=== PATIENT | female | born 1955 | race Caucasian/White ===

== ENCOUNTER 2018-09-02 09:55 | Emergency (ER) | payer OTHER ==
[~2018-09-02] VITALS: Ht 167.6 cm; Wt 70.0 kg
[~2018-09-02 09:55] MED LIST: ASPI-817; GLIP5TAB13; LEVO150T64; LISI10TA2; METF-849; PIOG15TA12; SIMV10TA
[2018-09-02 09:57] VITALS: BP 156/74; PULSE 106; RESP 18; Ht 167.6 cm; Wt 70.0 kg
[2018-09-02] MEDS ORDERED: KETOROLAC 30 MG INJ IM STA (10:19)
--- NOTE | 2018-09-02 10:29 | ERD ---
ER Documentation Chief Complaint Chief Complaint BIB CODE GREEN LEFT LEG PAIN S/P GROUND LEVEL FALL HPI 63-year-old female past medical history of diabetes who presented to the emergency room status post fall earlier this morning. Patient states he was in her daughter's room and slipped and "did a split" on wet floor. Has had persistent pain to the left knee as well as swelling. She denies any other injuries. No prefall dizziness or headache, no LOC or head trauma, no back pain. Has had difficulty placing weight on left knee. No past history of injuries to lower extremity. ROS All systems reviewed and are negative except as per history of present illness. Medications Home Meds Active Scripts Hydrocodone/Acetaminophen ([place] 5-325 Tablet) 1 Each Tablet, 1 TAB PO Q6H PRN for PAIN, #7 TAB Prov:EDWARDO DOMINGO PA-C 09/02/18 Naproxen* (Naprosyn*) 500 Mg Tablet, 500 MG PO BID PRN for PAIN AND/OR INFLAMMATION, #30 TAB Prov:EDWARDO DOMINGO PA-C 09/02/18 Reported Medications Aspirin* (Aspirin* EC) 81 Mg Tablet. 10/15/10 Lisinopril* (Lisinopril*) 10 Mg Tablet 10/15/10 Simvastatin* (Zocor*) 10 Mg Tablet 10/15/10 Glipizide* (Glipizide*) 5 Mg Tablet 10/15/10 Levothyroxine Sodium* (Levoxyl*) 150 Mcg Tablet 10/15/10 Pioglitazone Hcl* (Actos*) 15 Mg Tablet 10/15/10 Metformin* (Glucophage*) 500 Mg Tab 10/15/10 Allergies Allergies: Coded Allergies: No Known Drug Allergies (Verified Allergy, Mild, 09/02/18) PMhx/Soc History of Surgery: Yes (CHOLECYSTECTOMY) Anesthesia Reaction: No Hx Neurological Disorder: No Hx Respiratory Disorders: No Hx Cardiac Disorders: No Hx Psychiatric Problems: No Hx Miscellaneous Medical Probl: No Hx Alcohol Use: No Hx Substance Use: No Hx Tobacco Use: No FmHx Family History: No diabetes, No coronary disease, No other Physical Exam Vitals Vital Signs Date Temp Pulse Resp B/P (MAP) Pulse Ox O2 O2 Flow FiO2 Time Delivery Rate 09/02/18 97.9 106 18 156/74 99 09:57 (101) Physical Exam I have reviewed the triage vital signs. Const: Well nourished, well developed, appears stated age Eyes: PERRL, no conjunctival injection HENT: NCAT, Neck supple without meningismus CV: RRR, Warm, well-perfused extremities RESP: CTAB, Unlabored respiratory effort GI: soft, non-tender, non-distended, no masses MSK: No gross deformities appreciated L knee limited exam secondary to pain, painful ROM, prominent swelling to knee > lateral aspect, no gross deformity, SILT throughout, good distal pulses Skin: Warm, dry. No rashes Neuro: Alert,grossly intact Psych: Appropriate mood and affect. Results 24 hrs Current Medications Medications Dose Sig/Mandy Start Time Status Last (Trade) Ordered Route PRN Stop Time Admin Dose Reason Admin Ketorolac 30 mg ONCE STAT 09/02/18 DC 09/02/18 Tromethamine IM 10: 10:29 (Toradol) 09/02/18 10:21 Procedures/MDM 63-year-old female presents status post fall with injury to L knee. Will obtain imaging of left knee given. X-ray with acute tibial plateau fracture. Patient is neurovascular intact. Instructed patient in detail that she will need PMD follow-up just in case she needs MRI for additional evaluation as well as orthopedic surgery evaluation. She otherwise is stable and has good PMD follow- up. ED course: Toradol X-ray of left knee with acute tibial plateau fracture splint applied: Neurovascularly intact post splint Patient's symptoms have stabilized while in the department and are appropriate for outpatient care and work up. Fall Risk Assessment: No evidence of cardiac, neurologic, or metabolic cause of fall. Fall risk and home safety assessed and appropriate for outpatient care and work up. Departure Condition: Stable Patient Instructions: Knee Pain, Meniscus Injury (Possible) Referrals: [facility] EDWARDO DOMINGO PA-C Sep 02, 2018 10:29
[2018-09-02] MEDS ORDERED: NAPR-985 PO (10:31)
[2018-09-02] MEDS ORDERED: HYDR-4011 PO (10:31)
== END 2018-09-02 13:01 | disposition left against medical advice (07) ==
LOC: FTE 09:55 → EEVIPCON 09:55 → FTE 13:01
DX: S82.122A Displaced fracture of lateral condyle of left tibia, initial encounter for closed fracture (principal); E11.9 Type 2 diabetes mellitus without complications; W01.0XXA Fall on same level from slipping, tripping and stumbling without subsequent striking against object, initial encounter; Y92.89 Other specified places as the place of occurrence of the external cause; Z79.82 Long term (current) use of aspirin; Z79.84 Long term (current) use of oral hypoglycemic drugs
CPT/HCPCS: 29515; 73562; J1885; 96372

== ENCOUNTER 2018-10-04 17:03 | Inpatient (IN) | payer OTHER ==
[~2018-10-04] VITALS: Ht 157.5 cm; Wt 101.5 kg
[~2018-10-04 17:03] MED LIST changes: +HYDR-4011 PO; +NAPR-985 PO
[2018-10-04] MEDS ORDERED: SOD CHLORIDE 0.9% 250 ML IV STA (19:27)
--- NOTE | 2018-10-04 20:01 | ERD ---
ER Documentation Chief Complaint Chief Complaint HERE FOR ADMISSION, SEND BY DR GIRARD DX LEFT [place] LATERAL TIBIAL PLATEAU FX HPI 63-year-old woman presents with left knee pain status post depressed lateral left tibial plateau fracture that occurred 1 month ago. She was referred here by her orthopedic surgeon for preop workup and admission pending ORIF tomorrow morning. She denies any recent redness or swelling to the knee, no fevers or chills, no calf swelling, no complaints of chest pain or shortness of breath ROS All systems reviewed and are negative except as per history of present illness. Medications Home Meds Active Scripts Hydrocodone/Acetaminophen ([place] 5-325 Tablet) 1 Each Tablet, 1 TAB PO Q6H PRN for PAIN, #7 TAB Prov:EDWARDO DOMINGO PA-C 09/02/18 Naproxen* (Naprosyn*) 500 Mg Tablet, 500 MG PO BID PRN for PAIN AND/OR INFLAMMATION, #30 TAB Prov:EDWARDO DOMINGO PA-C 09/02/18 Reported Medications Aspirin* (Aspirin* EC) 81 Mg Tablet. 10/15/10 Lisinopril* (Lisinopril*) 10 Mg Tablet 10/15/10 Simvastatin* (Zocor*) 10 Mg Tablet 10/15/10 Glipizide* (Glipizide*) 5 Mg Tablet 10/15/10 Levothyroxine Sodium* (Levoxyl*) 150 Mcg Tablet 10/15/10 Pioglitazone Hcl* (Actos*) 15 Mg Tablet 10/15/10 Metformin* (Glucophage*) 500 Mg Tab 10/15/10 Allergies Allergies: Coded Allergies: No Known Drug Allergies (Verified Allergy, Mild, 09/02/18) PMhx/Soc Obesity, hypothyroidism, diabetes mellitus, history of cholecystectomy, hypertension, hearing impaired History of Surgery: Yes (CHOLECYSTECTOMY, hernia repair, cataract sx.) Anesthesia Reaction: No Hx Neurological Disorder: No Hx Respiratory Disorders: No Hx Cardiac Disorders: No Hx Psychiatric Problems: No Hx Miscellaneous Medical Probl: Yes (DM) Hx Alcohol Use: No Hx Substance Use: No Hx Tobacco Use: No FmHx Family History: diabetes Physical Exam Vitals Vital Signs Date Temp Pulse Resp B/P (MAP) Pulse Ox O2 O2 Flow FiO2 Time Delivery Rate 10/04/18 98.5 90 18 136/68 99 17:06 (90) Physical Exam Const: Mild discomfort, afebrile Resp: Clear to auscultation bilaterally Cardio: Regular rate and rhythm, no murmurs Abd: Soft, non tender, non distended. Skin: No petechiae or rashes Back: No midline or flank tenderness Ext: Mild soft tissue tenderness over the left lateral knee, patient is able to flex and extend the knee, distal pulses equal bilateral Neur: Awake and alert x3, no focal deficits or facial asymmetry Psych: Normal Mood and Affect Result Diagram: 10/04/18194310/04/181943 Results 24 hrs Laboratory Tests Test 10/04/18 19:44 White Blood Count 16.6 10^3/ul Red Blood Count 4.98 10^6/ul Hemoglobin 12.4 g/dl Hematocrit 39.7 % Mean Corpuscular Volume 79.7 fl Mean Corpuscular Hemoglobin 24.9 pg Mean Corpuscular Hemoglobin Concent 31.2 g/dl Red Cell Distribution Width 15.0 % Platelet Count 458 10^3/UL Mean Platelet Volume 10.0 fl Immature Granulocytes % 0.500 % Neutrophils % 61.0 % Lymphocytes % 30.2 % Monocytes % 5.5 % Eosinophils % 2.1 % Basophils % 0.7 % Nucleated Red Blood Cells % 0.0 /100WBC Immature Granulocytes # 0.090 10^3/ul Neutrophils # 10.1 10^3/ul Lymphocytes # 5.0 10^3/ul Monocytes # 0.9 10^3/ul Eosinophils # 0.4 10^3/ul Basophils # 0.1 10^3/ul Nucleated Red Blood Cells # 0.0 10^3/ul Prothrombin Time 12.4 Sec Prothrombin Time Ratio 1.0 INR International Normalized Ratio 0.91 Activated Partial Thromboplast Time 27.5 Sec Sodium Level 141 mmol/L Potassium Level 3.7 mmol/L Chloride Level 105 mmol/L Carbon Dioxide Level 25 mmol/L Anion Gap 11 Blood Urea Nitrogen 11 mg/dl Creatinine 0.54 mg/dl Est Glomerular Filtrat Rate mL/min > 60 mL/min Glucose Level 117 mg/dl Hemoglobin A1c 12.5 % Calcium Level 10.0 mg/dl Total Bilirubin 0.2 mg/dl Direct Bilirubin 0.00 mg/dl Indirect Bilirubin 0.2 mg/dl Aspartate Amino Transf (AST/SGOT) 13 IU/L Alanine Aminotransferase (ALT/SGPT) 13 IU/L Alkaline Phosphatase 154 IU/L Total Protein 7.9 g/dl Albumin 4.1 g/dl Globulin 3.80 g/dl Albumin/Globulin Ratio 1.07 Lipase 201 U/L Current Medications Medications Dose Sig/Mandy Start Time Status Last (Trade) Ordered Route PRN Stop Time Admin Dose Reason Admin Sodium 250 ml @ Q1H STAT 10/04/18 DC 10/04/18 Chloride 250 mls/hr IV 19:27 20:15 10/04/18 20:26 Procedures/MDM IV line was established patient was placed on cardiac exercise physiologist rhythm strip revealed a sinus rhythm at about 80 bpm with upright P and T waves. Patient was afebrile 1 view chest x-ray performed, read by me revealed mild atelectatic changes, no acute infiltrates, no pneumothorax. EKG performed, read by me: 82 bpm, normal sinus rhythm, normal axis, no acute ST segment changes, narrow QRS complex, with good R-wave progression in precordial leads. I administered normal saline drip CBC revealed a leukocytosis of 17, electrolytes normal, coagulation profile normal Patient is admitted to [facility] and is kept n.p.o. after midnight. Departure Diagnosis: Primary Impression: Tibial plateau fracture, left Encounter type: initial encounter Fracture type: closed Qualified Codes: S82.142A - Displaced bicondylar fracture of left tibia, initial encounter for closed fracture Condition: JACQUIE Zambrano MD Oct 04, 2018 20:01
[2018-10-04] MEDS ORDERED: DOCUSATE SODIUM 100 MG CAP PO PRN (20:30)
[2018-10-04] MEDS ORDERED: ACETAMINOPHEN 325 MG TAB PO PRN (20:30)
[2018-10-04] MEDS ORDERED: NACL 0.9% 3 ML SYG IV SCH (20:30)
[2018-10-04] MEDS ORDERED: morphine 2 MG INJ IV PRN (20:30)
[2018-10-04] MEDS ORDERED: ONDANSETRON 4 MG INJ IV PRN ×2 (20:30→21:30)
[2018-10-04] MEDS ORDERED: BISACODYL (EC) 5 MG TAB PO PRN (20:30)
--- NOTE | 2018-10-04 21:07 | CONS ---
Assessment/Plan Assessment/Plan Assessment/Plan (Daily) Preop For Left tibial plateau fracture and depression - Pt admitted from ER for planned for ORIF urgently given 3 week delay in surgery - NWB to the LLE - DM2 mgmt per Primary - Case mgmt - NPO after MN if cleared for surgery tomorrow - SCDS, williams for DVT prophx - CT of the left knee ---- Adrián Girard MD Consultation Date/Type/Reason Admit Date/Time Date of Consultation: Oct 04, 2018 Type of Consult Orthopedic Surgery Date/Time of Note DATE: 10/04/18 TIME: 21:07 Hx of Present Illness 63 yo female with 3 week history of Left knee pain s/p fall. Patient now with worsening pain and concern for future knee problems due to delay in surgery. Past Medical History Medical History: diabetes Home Meds Active Scripts Hydrocodone/Acetaminophen ([place] 5-325 Tablet) 1 Each Tablet, 1 TAB PO Q6H PRN for PAIN, #7 TAB Prov:EDWARDO DOMINGO PA-C 09/02/18 Naproxen* (Naprosyn*) 500 Mg Tablet, 500 MG PO BID PRN for PAIN AND/OR INFLAMMATION, #30 TAB Prov:EDWARDO DOMINGO PA-C 09/02/18 Reported Medications Aspirin* (Aspirin* EC) 81 Mg Tablet. 10/15/10 Lisinopril* (Lisinopril*) 10 Mg Tablet 10/15/10 Simvastatin* (Zocor*) 10 Mg Tablet 10/15/10 Glipizide* (Glipizide*) 5 Mg Tablet 10/15/10 Levothyroxine Sodium* (Levoxyl*) 150 Mcg Tablet 10/15/10 Pioglitazone Hcl* (Actos*) 15 Mg Tablet 10/15/10 Metformin* (Glucophage*) 500 Mg Tab 10/15/10 Allergies: Coded Allergies: No Known Drug Allergies (Verified Allergy, Mild, 09/02/18) Social History Alcohol Use: none Smoking Status: Unknown if ever smoked Exam/Review of Systems Exam Vitals Vital Signs Date Temp Pulse Resp B/P (MAP) Pulse Ox O2 O2 Flow FiO2 Time Delivery Rate 10/04/18 98.5 79 18 130/82 99 Room Air 21:02 (98) Extremities: other (LLE/ TA /GSC/EHL intact, silt to the m/l/d/p/fdws, dp/pt 1+, TTP over the lateral tibial plateau) Results Result Diagram: 10/04/18194310/04/184 Results 24hrs Laboratory Tests Test 10/04/18 19:44 White Blood Count 16.6 H Red Blood Count 4.98 Hemoglobin 12.4 Hematocrit 39.7 Mean Corpuscular Volume 79.7 L Mean Corpuscular Hemoglobin 24.9 L Mean Corpuscular Hemoglobin Concent 31.2 L Red Cell Distribution Width 15.0 H Platelet Count 458 H Mean Platelet Volume 10.0 Immature Granulocytes % 0.500 H Neutrophils % 61.0 Lymphocytes % 30.2 Monocytes % 5.5 Eosinophils % 2.1 Basophils % 0.7 Nucleated Red Blood Cells % 0.0 Immature Granulocytes # 0.090 H Neutrophils # 10.1 H Lymphocytes # 5.0 H Monocytes # 0.9 Eosinophils # 0.4 Basophils # 0.1 Nucleated Red Blood Cells # 0.0 Prothrombin Time 12.4 Prothrombin Time Ratio 1.0 INR International Normalized Ratio 0.91 Activated Partial Thromboplast Time 27.5 Sodium Level 141 Potassium Level 3.7 Chloride Level 105 Carbon Dioxide Level 25 Anion Gap 11 Blood Urea Nitrogen 11 Creatinine 0.54 Est Glomerular Filtrat Rate mL/min > 60 Glucose Level 117 Hemoglobin A1c 12.5 H Calcium Level 10.0 Total Bilirubin 0.2 Direct Bilirubin 0.00 Indirect Bilirubin 0.2 Aspartate Amino Transf (AST/SGOT) 13 L Alanine Aminotransferase (ALT/SGPT) 13 Alkaline Phosphatase 154 H Total Protein 7.9 Albumin 4.1 Globulin 3.80 H Albumin/Globulin Ratio 1.07 Lipase 201 VANESSA GIRARD MD Oct 04, 2018 21:07
--- NOTE | 2018-10-04 21:14 | HP ---
Date/Time of Note Date/Time of Note DATE: 10/04/18 TIME: 21:14 Assessment/Plan VTE Prophylaxis SCD applied (from Nsg): Yes Pharmacological prophylaxis: NA/contraindicated Pharm contraindication: surgical contra Lines/Catheters IV Catheter Type (from Nrsg): Mid Line Assessment/Plan Hospital Course This is a 63-year-old female being [facility] for: #1 Left acute depressed lateral tibial plateau fracture: We will proceed with a CT of the left lower extremity as requested by orthopedic surgery. Her white blood cells though are elevated at 16,000 and her x-ray did show signs of bronchial wall thickening which likely are consistent with her bronchial symptoms. She does not have any Sirs criteria. And she is afebrile. Will check a urinalysis as well for completeness sake. Will treat the bronchitis,, would hold off on surgery for the morning at the minimum until we can further see her progress for sending her in for surgery. I will also put in a pulmonary consult to get their opinion. Her hemoglobin A1c is 12.5 will need to optimize her blood sugars. Prior to her injury, she was a normally active functioning female. She was able to walk up and down stairs without any chest pain or shortness of breath. She has not had any issues with anesthesia in the past. She has METS greater than 4. EKG is nonischemic. Patient would be deemed intermediate risk for surgery, but the benefits would outweigh the risks. We will need to optimize her res piratory status as well as her blood sugars prior to undergoing surgery. #2 bronchitis: Likely viral. Patient did have white blood cell count of 16,000. She is a however is afebrile. We will put her on Atrovent scheduled. Will have pulmonary see the patient in consult as well to assess for surgical clearance. #3 Leukyctosis: possibly viral secondary to #2 afebrile. no sirs. will asses urinalysis. #4 nasal congestion: Flonase 1 spray in each nostril twice daily #5 poorly controlled diabetes mellitus: Patient has hemoglobin A1c of 12.5. Will initiate her weight-based dose of Lantus. Insulin sliding scale. Optimize patient's blood sugars prior to surgery. Will hold home oral medications at the current time #6 hypothyroidism: Check a TSH level, continue levothyroxine #7 hypertension: Resume patient's home medications #8 DVT GI prophylaxis: SCDs right lower extremity, no GI prophylaxis indicated Further treatment strategy will be implemented as per the clinical course Result Diagram: 10/04/18194310/04/181943 Results 24hrs Laboratory Tests Test 10/04/18 19:44 White Blood Count 16.6 H Red Blood Count 4.98 Hemoglobin 12.4 Hematocrit 39.7 Mean Corpuscular Volume 79.7 L Mean Corpuscular Hemoglobin 24.9 L Mean Corpuscular Hemoglobin Concent 31.2 L Red Cell Distribution Width 15.0 H Platelet Count 458 H Mean Platelet Volume 10.0 Immature Granulocytes % 0.500 H Neutrophils % 61.0 Lymphocytes % 30.2 Monocytes % 5.5 Eosinophils % 2.1 Basophils % 0.7 Nucleated Red Blood Cells % 0.0 Immature Granulocytes # 0.090 H Neutrophils # 10.1 H Lymphocytes # 5.0 H Monocytes # 0.9 Eosinophils # 0.4 Basophils # 0.1 Nucleated Red Blood Cells # 0.0 Prothrombin Time 12.4 Prothrombin Time Ratio 1.0 INR International Normalized Ratio 0.91 Activated Partial Thromboplast Time 27.5 Sodium Level 141 Potassium Level 3.7 Chloride Level 105 Carbon Dioxide Level 25 Anion Gap 11 Blood Urea Nitrogen 11 Creatinine 0.54 Est Glomerular Filtrat Rate mL/min > 60 Glucose Level 117 Hemoglobin A1c 12.5 H Calcium Level 10.0 Total Bilirubin 0.2 Direct Bilirubin 0.00 Indirect Bilirubin 0.2 Aspartate Amino Transf (AST/SGOT) 13 L Alanine Aminotransferase (ALT/SGPT) 13 Alkaline Phosphatase 154 H Total Protein 7.9 Albumin 4.1 Globulin 3.80 H Albumin/Globulin Ratio 1.07 Lipase 201 HPI/ROS Admit Date/Time Admit Date/Time Hx of Present Illness Chief complaint: Left lateral tibial plateau fracture 63-year-old woman presents with left knee pain status post depressed lateral left tibial plateau fracture that occurred 1 month ago. She was referred here by her orthopedic surgeon for preop workup and admission pending ORIF tomorrow morning. She denies any recent redness or swelling to the knee, no fevers or chills. She does however report that she has been dealing with a cough along wi th nasal congestion and left ear congestion for the past few days. On a normal basis she is an active female. She is able to walk up and down steps without any chest pain or shortness of breath. She denies any previous issues with anesthesia. Allergies: NKDA Medications: See AUG ROS Const: As per HPI Eyes : No pain discharge or redness or change in visual acuity ENT: No pain, sore throat, congestion, congestion, dysphagia or discharge Respiratory: As per HPI Cardiovascular: No chest pain, palpitation, PND, or edema GI : no change in appetite, abdominal pain, nausea, vomiting, diarrhea, constipation, or change in the color his stool Genitourinary: No dysuria, hematuria, flank pain , discharge or CVA tenderness Musculoskeletal: As per HPI Skin: No rash, bruising or hives Neuro: No headache, dizziness, syncope, seizure, focal weakness Endocrine: No polyuria, polydipsia, temperature intolerance Psych: No hallucination, depression, anxiety or suicidal ideation PMH/Family/Social Past Medical History Diabetes mellitus, hypertension, hypothyroidism Medications Current Medications Cefazolin Sodium 3 gm/Dextrose 100 ml @ 200 mls/hr PRE-OP ONCE IVPB ; Start 10/04/18 at 21:30; Stop 10/04/18 at 21:59; Status UNV Cefazolin Sodium/ Dextrose 50 ml @ 100 mls/hr PRE-OP ONCE IVPB ; Start 10/04/18 at 21:30; Stop 10/04/18 at 21:59; Status UNV Sodium Chloride 1,000 ml @ 80 mls/hr [id number] IV ; Start 10/05/18 at 00:00; Status UNV IV Flush (NS 3 ml) 3 ml PER PROTOCOL IV ; Start 10/04/18 at 20:30; Status UNV Ondansetron HCl (Zofran Inj) 4 mg Q6H PRN IV NAUSEA/VOMITING; Start 10/04/18 at 20:30; Status UNV Acetaminophen (Tylenol Tab) 650 mg Q6H PRN PO .PAIN 1-3 OR TEMP; Start 10/04/18 at 20:30; Status UNV Acetaminophen/ Hydrocodone Bitart ([place] (5/325)) 1 tab Q6H PRN PO .MOD PAIN 4- 6; Start 10/04/18 at 20:30; Status UNV Morphine Sulfate (morphine) 2 mg Q4H PRN IV .SEVERE PAIN 7-10; Start 10/04/18 at 20:30; Status UNV Docusate Sodium (Colace) 100 mg Q12H PRN PO .CONSTIPATION; Start 10/04/18 at 20:30; Status UNV Bisacodyl (Dulcolax) 5 mg DAILY PRN PO .CONSTIPATION; Start 10/04/18 at 20:30; Status UNV Miscellaneous Information (* Miscellaneous Pharmacy Order) Discontinue current oral sulfonylur... ONCE ONCE XX ; Start 10/04/18 at 21:30; Stop 10/04/18 at 21:31; Status UNV Diagnostic Test (Pha) (Accu-Chek) 1 XX ; Start 10/05/18 at 02:00; Status UNV Miscellaneous Information (* Miscellaneous Pharmacy Order) HYPOGLYCEMIA PROTOCOL w... ONCE ONCE XX ; Start 10/04/18 at 21:30; Stop 10/04/18 at 21:31; Status UNV Insulin Aspart (Novolog Insulin Pen) NOVOLOG *MODERATE* ALGORITHM WITH MEALS BEDTIME SC ; Start 10/05/18 at 08:00; Status UNV Miscellaneous Information (* Miscellaneous Pharmacy Order) Discontinue all previ... ONCE ONCE XX ; Start 10/04/18 at 21:30; Stop 10/04/18 at 21:31; Status UNV Insulin Glargine (Lantus) 10 units ONCE ONCE SC ; Start 10/04/18 at 21:30; Stop 10/04/18 at 21:31; Status UNV Coded Allergies: No Known Drug Allergies (Verified Allergy, Mild, 09/02/18) Past Surgical History Hernia surgery, cholecystectomy, cataract surgery, tonsillectomy Family History Significant Family History: no pertinent family hx Social History Alcohol Use: none Smoking Status: Never smoker Drug Use: none Exam/Review of Systems Vital Signs Vitals Vital Signs Date Temp Pulse Resp B/P (MAP) Pulse Ox O2 O2 Flow FiO2 Time Delivery Rate 10/04/18 98.5 79 18 130/82 99 Room Air 21:02 (98) Exam Exam General: Patient is a pleasant female currently lying in bed in no acute distress HEENT: Atraumatic, normocephalic. The pupils are equal, round and reactive. Extraocular motor are intact Neck: Supple with full range of motion. No rigidity or meningismus Chest: Nontender Lungs: Clear to auscultation bilaterally no crackles rales or wheezing, nonproductive cough Heart: Normal S1-S2, Regular rhythm and rate. No murmur, S3, or S4 Abdomen: Soft , nontender, nondistended , bowel sounds are present. No guarding no rebound tenderness , No masses or organomegaly. No costovertebral temporal angle mass Extremities: Left lower extremity pain at the area of the tibia Neurologic: Normal mental status, speech normal, cranial nerves II through XII are intact, motor and sensory are intact, no focal weakness Additional Comments EKG 82 bpm, normal sinus rhythm, normal axis, no acute ST segment changes, narrow QRS complex, with good R-wave progression in precordial leads. PROCEDURE: Portable chest x-ray. CLINICAL INDICATION: 63 years of age, female. Abdominal pain. TECHNIQUE: Portable AP view of the chest. COMPARISON: None available. FINDINGS: Medical devices: None. Mediastinum: Tortuous thoracic aorta. Normal heart size. Lungs: There may be mild bronchial wall thickening. Lungs are otherwise clear. Pleura: Negative for pleural effusion or pneumothorax. Bones: No acute bony abnormality. Additional comment: None. IMPRESSION: Mild bronchial wall thickening may be due to bronchitis or asthma. RPTAT: HCTS Physician Ale Date Time Electronically viewed and signed by Ahmet Valenzuela Physician on 10/04/2018 20:02 CS/ CC: JACQUIE RODNEY MD [id number] PROCEDURE: XR left knee CLINICAL INDICATION: Knee pain status post fall. TECHNIQUE: Three views of the left knee were obtained. COMPARISON: None. FINDINGS: The bone mineralization is decreased. There is a depressed lateral tibial plateau fracture which appears acute. There is moderate joint effusion likely representing hemarthrosis. There are moderate degenerative changes of the left knee. IMPRESSION: 1. Osseous demineralization with an acute depressed lateral tibial plateau fracture and moderate joint effusion. RPTAT: AAEE R-Rana Fattahi, Physician Date Time Electronically viewed and signed by Carolyn Cox, Physician on 09/02/2018 10 :59 RF/ CC: EDWARDO DOMINGO PA-C [id number] DAVID HURTADO Oct 04, 2018 21:14
[2018-10-04 21:15] VITALS: BP 111/57; PULSE 85; RESP 18
[2018-10-04] MEDS ORDERED: INSULIN GLARGINE [LANTus] (100 UNITS/ML) SYG SC ONE (21:30)
[2018-10-04] MEDS ORDERED: CEFAZOLIN 3 GM in DEXTROSE 5% 100 ML IVPB ONE (21:30)
[2018-10-04] MEDS ORDERED: GLUCOSE GEL 15 GRAM TUBE PO PRN ×2 (22:00)
[2018-10-04] MEDS ORDERED: DEXTROSE 50% 50 ML SYRINGE IV PRN ×2 (22:00)
[2018-10-04] MEDS ORDERED: GLUCAGON 1 MG INJ IM PRN (22:00)
[2018-10-04] MEDS ORDERED: GLUCOSE GEL 15 GRAM TUBE BUCCAL PRN (22:00)
[2018-10-04] MEDS ORDERED: POTASSIUM CHLORIDE (SR) 20 MEQ TAB PO STA (22:51)
[2018-10-05] MEDS: SOD CHLORIDE 0.9% 1,000 ML IV SCH ×2 (00:12→12:16)
[2018-10-05] MEDS: ACCU-CHEK XX SCH ×2 (02:00)
[2018-10-05 02:30] VITALS: BP 110/58; PULSE 74; RESP 18
[2018-10-05] MEDS ORDERED: INSULIN ASPART [NOVOLOG] 3 ML PEN SC SCH ×2 (05:00→08:00)
[2018-10-05] MEDS ORDERED: CEFAZOLIN 2 GM/50 ML (PMX) 50 ML IVPB ONE (06:00)
[2018-10-05] MEDS: IPRATROPIUM (NEB) 0.5 MG/2.5 ML AMP HHN SCH ×5 (07:00→20:27)
[2018-10-05] MEDS: INSULIN ASPART [NOVOLOG] 3 ML PEN SC SCH ×4 (08:00→20:34)
[2018-10-05 08:32] VITALS: BP 97/50; PULSE 67; RESP 18
--- NOTE | 2018-10-05 08:34 | PN ---
Date/Time of Note Date/Time of Note DATE: 10/05/18 TIME: 08:34 Assessment/Plan Lines/Catheters IV Catheter Type (from Nrsg): Peripheral IV Assessment/Plan Assessment/Plan Preop For Left tibial plateau fracture and depression - Pt admitted from ER for planned for ORIF urgently given 3 week delay in surgery - NWB to the LLE - Hold on Surgery today per Medicine due to UTI and bronchitis - DM2 mgmt per Primary - Case mgmt - NPO after MN if cleared for surgery tomorrow ---- Adrián Girard MD Subjective 24 Hr Interval Summary Patient doing well Pain controlled. Exam/Review of Systems Vital Signs Vitals Vital Signs Date Temp Pulse Resp B/P (MAP) Pulse Ox O2 O2 Flow FiO2 Time Delivery Rate 10/05/18 98.1 67 18 97/50 (66) 92 08:32 10/05/18 07:48 10/04/18 Room Air 21:02 Intake and Output 10/04/18 10/04/18 10/05/18 1515:00 23:00 07:00 IntakeIntake Total 400 ml BalanceBalance 400 ml Exam Musculoskeletal: other (LLE/TA /GSC/EHL intact, silt to the m/l/d/p/fdws, dp/pt 1+, TTP over the lateral tibial plateau) Results Result Diagram: 10/05/18 0541 10/05/18 0541 VANESSA GIRARD MD Oct 05, 2018 08:34
[2018-10-05] MEDS ORDERED: LISINOPRIL 10 MG TAB PO SCH (09:00)
[2018-10-05] MEDS ORDERED: IPRATROPIUM (NEB) 0.5 MG/2.5 ML AMP HHN SCH (09:00)
[2018-10-05] MEDS: LEVOTHYROXINE 150 MCG TAB PO SCH (09:00)
[2018-10-05] MEDS: MAGNESIUM OXIDE 400 MG TAB PO SCH ×2 (09:01→20:34)
[2018-10-05] MEDS: FLUTICASONE 0.05% 16 GM NAS SPRAY NASAL SCH ×2 (09:01→20:35)
--- NOTE | 2018-10-05 12:45 | PN ---
Date/Time of Note Date/Time of Note DATE: 10/05/18 TIME: 12:37 Assessment/Plan VTE Prophylaxis Risk score (from Ns)>0 risk: 5 SCD applied (from Ns): Yes Pharmacological prophylaxis: LMWH Lines/Catheters IV Catheter Type (from [facility]): Peripheral IV Assessment/Plan Assessment/Plan 1. Left depressed lateral tibial plateau fracture, follow up with ortho for plan of surgery 2. Acute bronchitis/pneumonia, start on levaquin 3. DM, HbA1c 12.5, on insulins 4. HTN, hold lisinopril for low BP 5. Hypothyroidism, on synthroid 6. DVT prophylaxis, lovenox Result Diagram: 10/05/18 0541 10/05/18 0541 Results 24hrs Laboratory Tests Test 10/04/18 19:44 10/04/18 22:48 10/05/18 05:41 10/05/18 05:57 White Blood Count 16.6 H 14.1 H Red Blood Count 4.98 4.47 Hemoglobin 12.4 11.1 L Hematocrit 39.7 36.0 L Mean Corpuscular 79.7 L 80.5 L Volume Mean Corpuscular 24.9 L 24.8 L Hemoglobin Mean Corpuscular 31.2 L 30.8 L Hemoglobin Concent Red Cell 15.0 H 15.0 H Distribution Width Platelet Count 458 H 428 H Mean Platelet Volume 10.0 10.0 Immature 0.500 H 0.500 H Granulocytes % Neutrophils % 61.0 64.5 Lymphocytes % 30.2 25.7 Monocytes % 5.5 5.8 Eosinophils % 2.1 3.0 Basophils % 0.7 0.5 Nucleated Red Blood 0.0 0.0 Cells % Immature 0.090 H 0.070 H Granulocytes # Neutrophils # 10.1 H 9.1 H Lymphocytes # 5.0 H 3.6 H Monocytes # 0.9 0.8 Eosinophils # 0.4 0.4 Basophils # 0.1 0.1 Nucleated Red Blood 0.0 0.0 Cells # Prothrombin Time 12.4 Prothrombin Time 1.0 Ratio INR International 0.91 Normalized Ratio Activated 27.5 Partial Thromboplast Time Sodium Level 141 143 Potassium Level 3.7 4.2 Chloride Level 105 105 Carbon Dioxide Level 25 27 Anion Gap 11 11 Blood Urea Nitrogen 11 14 Creatinine 0.54 0.44 Est Glomerular > 60 > 60 Filtrat Rate mL/min Glucose Level 117 124 Hemoglobin A1c 12.5 H 12.7 H Calcium Level 10.0 9.1 Magnesium Level 1.8 Total Bilirubin 0.2 0.3 Direct Bilirubin 0.00 0.00 Indirect Bilirubin 0.2 0.3 Aspartate Amino 13 L 19 Transf (AST/SGOT) Alanine 13 16 Aminotransferase (AL T/SGPT) Alkaline Phosphatase 154 H 115 Total Protein 7.9 6.7 # Albumin 4.1 3.7 Globulin 3.80 H 3.00 Albumin/Globulin 1.07 1.23 Ratio Lipase 201 Bedside Glucose 148 124 Iron Level 34 L Total Iron Binding 361 Capacity Percent Iron 9 L Saturation Ferritin 27.4 Triglycerides Level 127 Cholesterol Level 143 LDL Cholesterol, 67 Calculated HDL Cholesterol 51 Cholesterol/HDL 2.8 Ratio Thyroid Stimulating 2.610 Hormone (TSH) Test 10/05/18 07:57 10/05/18 12:09 Bedside Glucose 134 164 Subjective 24 Hr Interval Summary Free Text/Dictation cough with yellow/green sputum Exam/Review of Systems Exam Vitals Vital Signs Date Temp Pulse Resp B/P (MAP) Pulse Ox O2 O2 Flow FiO2 Time Delivery Rate 10/05/18 98.1 67 18 97/50 (66) 92 08:32 10/05/18 21 07:48 10/04/18 Room Air 21:02 Intake and Output 10/04/18 10/04/18 10/05/18 1515:00 23:00 07:00 IntakeIntake Total 400 ml BalanceBalance 400 ml Constitutional: alert, oriented, well developed Psych: no complaints Head: normocephalic, atraumatic Eyes: nl conjunctiva, EOMI, nl lids ENMT: nl external ears & nose, nl lips & teeth, nl nasal mucosa & septum Neck: supple, non-tender Respiratory: clear to auscultation, normal air movement; No congested cough, No crackles/rales, No diminished breath sounds, No intercostal retraction, No labored breathing, No respirations, No tactile fremitus, No wheezing, No other Cardiovascular: regular rate and rhythm, nl pulses; No bruits, No diastolic murmur, No edema, No gallop, No irregular rhythm, No jugular venous distention (JVD), No murmurs/extra sounds, No rub, No systolic murmur, No S3, No S4, No other Gastrointestinal: soft, nl liver, spleen, non-tender Extremities: other (left knee pain) Results Results 24hrs Laboratory Tests Test 10/04/18 19:44 10/04/18 22:48 10/05/18 05:41 10/05/18 05:57 White Blood Count 16.6 H 14.1 H Red Blood Count 4.98 4.47 Hemoglobin 12.4 11.1 L Hematocrit 39.7 36.0 L Mean Corpuscular 79.7 L 80.5 L Volume Mean Corpuscular 24.9 L 24.8 L Hemoglobin Mean Corpuscular 31.2 L 30.8 L Hemoglobin Concent Red Cell 15.0 H 15.0 H Distribution Width Platelet Count 458 H 428 H Mean Platelet Volume 10.0 10.0 Immature 0.500 H 0.500 H Granulocytes % Neutrophils % 61.0 64.5 Lymphocytes % 30.2 25.7 Monocytes % 5.5 5.8 Eosinophils % 2.1 3.0 Basophils % 0.7 0.5 Nucleated Red Blood 0.0 0.0 Cells % Immature 0.090 H 0.070 H Granulocytes # Neutrophils # 10.1 H 9.1 H Lymphocytes # 5.0 H 3.6 H Monocytes # 0.9 0.8 Eosinophils # 0.4 0.4 Basophils # 0.1 0.1 Nucleated Red Blood 0.0 0.0 Cells # Prothrombin Time 12.4 Prothrombin Time 1.0 Ratio INR International 0.91 Normalized Ratio Activated 27.5 Partial Thromboplast Time Sodium Level 141 143 Potassium Level 3.7 4.2 Chloride Level 105 105 Carbon Dioxide Level 25 27 Anion Gap 11 11 Blood Urea Nitrogen 11 14 Creatinine 0.54 0.44 Est Glomerular > 60 > 60 Filtrat Rate mL/min Glucose Level 117 124 Hemoglobin A1c 12.5 H 12.7 H Calcium Level 10.0 9.1 Magnesium Level 1.8 Total Bilirubin 0.2 0.3 Direct Bilirubin 0.00 0.00 Indirect Bilirubin 0.2 0.3 Aspartate Amino 13 L 19 Transf (AST/SGOT) Alanine 13 16 Aminotransferase (AL T/SGPT) Alkaline Phosphatase 154 H 115 Total Protein 7.9 6.7 # Albumin 4.1 3.7 Globulin 3.80 H 3.00 Albumin/Globulin 1.07 1.23 Ratio Lipase 201 Bedside Glucose 148 124 Iron Level 34 L Total Iron Binding 361 Capacity Percent Iron 9 L Saturation Ferritin 27.4 Triglycerides Level 127 Cholesterol Level 143 LDL Cholesterol, 67 Calculated HDL Cholesterol 51 Cholesterol/HDL 2.8 Ratio Thyroid Stimulating 2.610 Hormone (TSH) Test 10/05/18 07:57 10/05/18 12:09 Bedside Glucose 134 164 Medications Medication Current Medications Sodium Chloride 1,000 ml @ 80 mls/hr [id number] IV Last administered on 10/05/18at 12:16; Admin Dose 80 MLS/HR; Start 10/05/18 at 00:00 IV Flush (NS 3 ml) 3 ml PER PROTOCOL IV ; Start 10/04/18 at 20:30 Acetaminophen (Tylenol Tab) 650 mg Q6H PRN PO .PAIN 1-3 OR TEMP; Start 10/04/18 at 20:30 Acetaminophen/ Hydrocodone Bitart ([place] (5/325)) 1 tab Q6H PRN PO .MOD PAIN 4- 6; Start 10/04/18 at 20:30 Morphine Sulfate (morphine) 2 mg Q4H PRN IV .SEVERE PAIN 7-10; Start 10/04/18 at 20:30 Docusate Sodium (Colace) 100 mg Q12H PRN PO .CONSTIPATION; Start 10/04/18 at 20:30 Bisacodyl (Dulcolax) 5 mg DAILY PRN PO .CONSTIPATION; Start 10/04/18 at 20:30 Diagnostic Test (Pha) (Accu-Chek) 1 ea 02 XX ; Start 10/05/18 at 02:00 Ondansetron HCl (Zofran Inj) 4 mg Q4 PRN IV NAUSEA/VOMITING; Start 10/04/18 at 21:30 Miscellaneous Information 1 ea NOTE XX ; Start 10/04/18 at 22:00 Glucose (Glutose) 15 gm Q15M PRN PO DECREASED GLUCOSE; Start 10/04/18 at 22:00 Glucose (Glutose) 22.5 gm Q15M PRN PO DECREASED GLUCOSE; Start 10/04/18 at 22:00 Dextrose (D50w Syringe) 25 ml Q15M PRN IV DECREASED GLUCOSE; Start 10/04/18 at 22:00 Dextrose (D50w Syringe) 50 ml Q15M PRN IV DECREASED GLUCOSE; Start 10/04/18 at 22:00 Glucagon (Glucagen) 1 mg Q15M PRN IM DECREASED GLUCOSE; Start 10/04/18 at 22:00 Glucose (Glutose) 15 gm Q15M PRN BUCCAL DECREASED GLUCOSE; Start 10/04/18 at 22:00 Magnesium Oxide (Mag-Ox 400) 400 mg BID PO Last administered on 10/05/18at 09:01; Admin Dose 400 MG; Start 10/05/18 at 09:00; Stop 10/06/18 at 08:59 Diagnostic Test (Pha) (Accu-Chek) 1 ea 02 XX ; Start 10/05/18 at 02:00 Levothyroxine Sodium (Synthroid) 150 mcg AC BREAKFAST PO Last administered on 10/05/18at 09:00; Admin Dose 150 MCG; Start 10/05/18 at 07:30 Lisinopril (Zestril) 10 mg DAILY PO ; Start 10/05/18 at 09:00 Fluticasone Propionate (Flonase 0.05% Nasal) 1 spray BID NASAL Last administered on 10/05/18at 09:01; Admin Dose 1 SPRAY; Start 10/05/18 at 09:00 Ipratropium [place] (Atrovent 0.02% (Neb)) 0.5 mg Q4H RESP THERAPY HHN Last administered on 10/05/18at 07:43; Admin Dose 0.5 MG; Start 10/05/18 at 07:00 Diagnostic Test (Pha) (Accu-Chek) 1 ea 02 XX ; Start 10/06/18 at 02:00 Insulin Aspart (Novolog Insulin Pen) NOVOLOG *MODERATE* ALGORITHM WITH MEALS BEDTIME SC Last administered on 10/05/18at 12:13; Admin Dose 1 UNIT; Start 10/05/18 at 08:00 MARIA T MONCADA MD Oct 05, 2018 12:45
[2018-10-05] MEDS: ENOXAPARIN 40 MG/0.4 ML SYG SC SCH (13:06)
[2018-10-05] MEDS: LEVOFLOXACIN 500 MG TAB PO SCH (13:07)
[2018-10-05 14:33] VITALS: BP 108/53; PULSE 87; RESP 19
--- NOTE | 2018-10-05 16:50 | CONS ---
Assessment/Plan Assessment/Plan Hospital Course (Demo Recall) 1. Cardiovascular preop evaluation for left depressed lateral tibial plateau fracture, 2. Acute bronchitis : on levaquin 3. DM, HbA1c 12.5, on insulins 4. HTN, now mostly hypotensive. Hold lisinopril for low BP 5. Hypothyroidism, on synthroid 6. DVT prophylaxis, lovenox Recommendation: Patient has good exercise tolerance per her history and no evidence of anginal chest pain. Denies any history of cardiac disorder. Patient involving formation obtained from the patient, no further cardiac work-up would be indicated. Patient is considered optimized from the cardiac standpoint for both orthopedic surgery with low to moderate risk of cardiovascular event given her risk factor including her diabetes. Her bronchitis treatment and management as per internal medicine team. Thank you for his referral. We will continue to follow along with you RICHARD SRINIVASAN MD [facility] Consultation Date/Type/Reason Admit Date/Time Date of Consultation: Oct 05, 2018 Type of Consult Cardiology Reason for Consultation cv preop Requesting Provider: DAVID HURTADO Date/Time of Note DATE: 10/05/18 TIME: 16:44 Hx of Present Illness Interventional cardiology consultation note Chief complaint: Tibial fracture Reason for consult: Cardiovascular preop evaluation History of present illness: Thank you for this referral. History was obtained from the patient discussion with the staff and physicians. Review of the chart. This is a pleasant 63-year-old female with history of diabetes, poorly cont rolled who has had a fall and tibial fracture a few weeks ago. Patient has been admitted for surgery tomorrow. We were kindly asked to evaluate and optimize from the cardiac standpoint prior to the surgery. Patient denies any left-sided chest pain or pressure to me denies any palpitation to me. She has stated normally before she broke her foot she was able to walk as much as she wanted to more than 3-4 blocks for sure with no chest pain or pressure. At this point she has had a cough with green sputum over the past 2 weeks. She complains of severe leg pain and has chronic poor hearing as well Allergies: No known drug allergies Medications were reviewed as per medical reconciliation sheet Family history: No reported history of early coronary artery disease Social history: Does not smoke at this point Past medical history: Diabetes hypothyroidism hypertension obesity. Poor hearing Review of system: Patient denies all others except for above-mentioned Past Medical History Home Meds Active Scripts Hydrocodone/Acetaminophen ([place] 5-325 Tablet) 1 Each Tablet, 1 TAB PO Q6H PRN for PAIN, #7 TAB Prov:EDWARDO DOMINGO PA-C 09/02/18 Naproxen* (Naprosyn*) 500 Mg Tablet, 500 MG PO BID PRN for PAIN AND/OR INFLAMMATION, #30 TAB Prov:EDWARDO DOMINGO PA-C 09/02/18 Reported Medications Aspirin* (Aspirin* EC) 81 Mg Tablet. 10/15/10 Lisinopril* (Lisinopril*) 10 Mg Tablet 10/15/10 Simvastatin* (Zocor*) 10 Mg Tablet 10/15/10 Glipizide* (Glipizide*) 5 Mg Tablet 10/15/10 Levothyroxine Sodium* (Levoxyl*) 150 Mcg Tablet 10/15/10 Pioglitazone Hcl* (Actos*) 15 Mg Tablet 10/15/10 Metformin* (Glucophage*) 500 Mg Tab 10/15/10 Medications Current Medications Sodium Chloride 1,000 ml @ 80 mls/hr [id number] IV Last administered on 10/05/18at 12:16; Admin Dose 80 MLS/HR; Start 10/05/18 at 00:00 IV Flush (NS 3 ml) 3 ml PER PROTOCOL IV ; Start 10/04/18 at 20:30 Acetaminophen (Tylenol Tab) 650 mg Q6H PRN PO .PAIN 1-3 OR TEMP; Start 10/04/18 at 20:30 Acetaminophen/ Hydrocodone Bitart ([place] (5/325)) 1 tab Q6H PRN PO .MOD PAIN 4- 6; Start 10/04/18 at 20:30 Morphine Sulfate (morphine) 2 mg Q4H PRN IV .SEVERE PAIN 7-10; Start 10/04/18 at 20:30 Docusate Sodium (Colace) 100 mg Q12H PRN PO .CONSTIPATION; Start 10/04/18 at 20:30 Bisacodyl (Dulcolax) 5 mg DAILY PRN PO .CONSTIPATION; Start 10/04/18 at 20:30 Diagnostic Test (Pha) (Accu-Chek) 1 ea 02 XX ; Start 10/05/18 at 02:00 Ondansetron HCl (Zofran Inj) 4 mg Q4 PRN IV NAUSEA/VOMITING; Start 10/04/18 at 21:30 Miscellaneous Information 1 ea NOTE XX ; Start 10/04/18 at 22:00 Glucose (Glutose) 15 gm Q15M PRN PO DECREASED GLUCOSE; Start 10/04/18 at 22:00 Glucose (Glutose) 22.5 gm Q15M PRN PO DECREASED GLUCOSE; Start 10/04/18 at 22:00 Dextrose (D50w Syringe) 25 ml Q15M PRN IV DECREASED GLUCOSE; Start 10/04/18 at 22:00 Dextrose (D50w Syringe) 50 ml Q15M PRN IV DECREASED GLUCOSE; Start 10/04/18 at 22:00 Glucagon (Glucagen) 1 mg Q15M PRN IM DECREASED GLUCOSE; Start 10/04/18 at 22:00 Glucose (Glutose) 15 gm Q15M PRN BUCCAL DECREASED GLUCOSE; Start 10/04/18 at 22:00 Magnesium Oxide (Mag-Ox 400) 400 mg BID PO Last administered on 10/05/18at 09:01; Admin Dose 400 MG; Start 10/05/18 at 09:00; Stop 10/06/18 at 08:59 Diagnostic Test (Pha) (Accu-Chek) 1 ea 02 XX ; Start 10/05/18 at 02:00 Levothyroxine Sodium (Synthroid) 150 mcg AC BREAKFAST PO Last administered on 10/05/18at 09:00; Admin Dose 150 MCG; Start 10/05/18 at 07:30 Fluticasone Propionate (Flonase 0.05% Nasal) 1 spray BID NASAL Last administered on 10/05/18at 09:01; Admin Dose 1 SPRAY; Start 10/05/18 at 09:00 Ipratropium [place] (Atrovent 0.02% (Neb)) 0.5 mg Q4H RESP THERAPY HHN Last administered on 10/05/18at 13:26; Admin Dose 0.5 MG; Start 10/05/18 at 07:00 Diagnostic Test (Pha) (Accu-Chek) 1 ea 02 XX ; Start 10/06/18 at 02:00 Insulin Aspart (Novolog Insulin Pen) NOVOLOG *MODERATE* ALGORITHM WITH MEALS BEDTIME SC Last administered on 10/05/18at 12:13; Admin Dose 1 UNIT; Start 10/05/18 at 08:00 Levofloxacin (Levaquin) 500 mg DAILY@0600 PO Last administered on 10/05/18at 13:07; Admin Dose 500 MG; Start 10/05/18 at 13:00 Enoxaparin Sodium (Lovenox) 40 mg DAILY SC Last administered on 10/05/18at 13:06; Admin Dose 40 MG; Start 10/05/18 at 13:00 Allergies: Coded Allergies: No Known Drug Allergies (Verified Allergy, Mild, 09/02/18) Social History Alcohol Use: none Smoking Status: Never smoker Drug Use: none Exam/Review of Systems Vital Signs Vitals Vital Signs Date Temp Pulse Resp B/P (MAP) Pulse Ox O2 O2 Flow FiO2 Time Delivery Rate 10/05/18 98.0 87 19 108/53 93 14:33 (71) 10/05/18 13:10 10/04/18 Room Air 21:02 Intake and Output 10/04/18 10/04/18 10/05/18 1515:00 23:00 07:00 IntakeIntake Total 400 ml BalanceBalance 400 ml Exam Exam General: Obese female in no acute distress HEENT: NC/AT. pupils are equal. round. NECK: NO JVD. no stridor. CV: RRR. systolic murmur; no gallop or rubs. PULM: no wheezing or rhonchi. GI: SOFT, NT, ND, no rebound or guarding Extremity: trace B/L LE edema. no clubbing. neuro: awake and alert, OX3. Psych: calm and pleasant rectal: deferred : normal EKG done October 04 was personally reviewed and normal sinus rhythm. Poor R wave progression otherwise no evidence of ischemia Chest x-ray shows: Mild bronchial wall thickening may be due to bronchitis or asthma. Labs Result Diagram: 10/05/18 0541 10/05/18 0541 Results 24hrs Laboratory Tests Test 10/04/18 19:44 10/04/18 22:48 10/05/18 05:41 10/05/18 05:57 White Blood Count 16.6 H 14.1 H Red Blood Count 4.98 4.47 Hemoglobin 12.4 11.1 L Hematocrit 39.7 36.0 L Mean Corpuscular 79.7 L 80.5 L Volume Mean Corpuscular 24.9 L 24.8 L Hemoglobin Mean Corpuscular 31.2 L 30.8 L Hemoglobin Concent Red Cell 15.0 H 15.0 H Distribution Width Platelet Count 458 H 428 H Mean Platelet Volume 10.0 10.0 Immature 0.500 H 0.500 H Granulocytes % Neutrophils % 61.0 64.5 Lymphocytes % 30.2 25.7 Monocytes % 5.5 5.8 Eosinophils % 2.1 3.0 Basophils % 0.7 0.5 Nucleated Red Blood 0.0 0.0 Cells % Immature 0.090 H 0.070 H Granulocytes # Neutrophils # 10.1 H 9.1 H Lymphocytes # 5.0 H 3.6 H Monocytes # 0.9 0.8 Eosinophils # 0.4 0.4 Basophils # 0.1 0.1 Nucleated Red Blood 0.0 0.0 Cells # Prothrombin Time 12.4 Prothrombin Time 1.0 Ratio INR International 0.91 Normalized Ratio Activated 27.5 Partial Thromboplast Time Sodium Level 141 143 Potassium Level 3.7 4.2 Chloride Level 105 105 Carbon Dioxide Level 25 27 Anion Gap 11 11 Blood Urea Nitrogen 11 14 Creatinine 0.54 0.44 Est Glomerular > 60 > 60 Filtrat Rate mL/min Glucose Level 117 124 Hemoglobin A1c 12.5 H 12.7 H Calcium Level 10.0 9.1 Magnesium Level 1.8 Total Bilirubin 0.2 0.3 Direct Bilirubin 0.00 0.00 Indirect Bilirubin 0.2 0.3 Aspartate Amino 13 L 19 Transf (AST/SGOT) Alanine 13 16 Aminotransferase (AL T/SGPT) Alkaline Phosphatase 154 H 115 Total Protein 7.9 6.7 # Albumin 4.1 3.7 Globulin 3.80 H 3.00 Albumin/Globulin 1.07 1.23 Ratio Lipase 201 Bedside Glucose 148 124 Iron Level 34 L Total Iron Binding 361 Capacity Percent Iron 9 L Saturation Ferritin 27.4 Triglycerides Level 127 Cholesterol Level 143 LDL Cholesterol, 67 Calculated HDL Cholesterol 51 Cholesterol/HDL 2.8 Ratio Thyroid Stimulating 2.610 Hormone (TSH) Test 10/05/18 07:57 10/05/18 12:09 Bedside Glucose 134 164 Medications Medications Current Medications Sodium Chloride 1,000 ml @ 80 mls/hr [id number] IV Last administered on 10/05/18at 12:16; Admin Dose 80 MLS/HR; Start 10/05/18 at 00:00 IV Flush (NS 3 ml) 3 ml PER PROTOCOL IV ; Start 10/04/18 at 20:30 Acetaminophen (Tylenol Tab) 650 mg Q6H PRN PO .PAIN 1-3 OR TEMP; Start 10/04/18 at 20:30 Acetaminophen/ Hydrocodone Bitart ([place] (5/325)) 1 tab Q6H PRN PO .MOD PAIN 4- 6; Start 10/04/18 at 20:30 Morphine Sulfate (morphine) 2 mg Q4H PRN IV .SEVERE PAIN 7-10; Start 10/04/18 at 20:30 Docusate Sodium (Colace) 100 mg Q12H PRN PO .CONSTIPATION; Start 10/04/18 at 20:30 Bisacodyl (Dulcolax) 5 mg DAILY PRN PO .CONSTIPATION; Start 10/04/18 at 20:30 Diagnostic Test (Pha) (Accu-Chek) 1 ea 02 XX ; Start 10/05/18 at 02:00 Ondansetron HCl (Zofran Inj) 4 mg Q4 PRN IV NAUSEA/VOMITING; Start 10/04/18 at 21:30 Miscellaneous Information 1 ea NOTE XX ; Start 10/04/18 at 22:00 Glucose (Glutose) 15 gm Q15M PRN PO DECREASED GLUCOSE; Start 10/04/18 at 22:00 Glucose (Glutose) 22.5 gm Q15M PRN PO DECREASED GLUCOSE; Start 10/04/18 at 22:00 Dextrose (D50w Syringe) 25 ml Q15M PRN IV DECREASED GLUCOSE; Start 10/04/18 at 22:00 Dextrose (D50w Syringe) 50 ml Q15M PRN IV DECREASED GLUCOSE; Start 10/04/18 at 22:00 Glucagon (Glucagen) 1 mg Q15M PRN IM DECREASED GLUCOSE; Start 10/04/18 at 22:00 Glucose (Glutose) 15 gm Q15M PRN BUCCAL DECREASED GLUCOSE; Start 10/04/18 at 22:00 Magnesium Oxide (Mag-Ox 400) 400 mg BID PO Last administered on 10/05/18at 09:01; Admin Dose 400 MG; Start 10/05/18 at 09:00; Stop 10/06/18 at 08:59 Diagnostic Test (Pha) (Accu-Chek) 1 ea 02 XX ; Start 10/05/18 at 02:00 Levothyroxine Sodium (Synthroid) 150 mcg AC BREAKFAST PO Last administered on 10/05/18 09:00; Admin Dose 150 MCG; Start 10/05/18 at 07:30 Fluticasone Propionate (Flonase 0.05% Nasal) 1 spray BID NASAL Last administered on 10/05/18 09:01; Admin Dose 1 SPRAY; Start 10/05/18 at 09:00 Ipratropium [place] (Atrovent 0.02% (Neb)) 0.5 mg Q4H RESP THERAPY HHN Last administered on 10/05/18 13:26; Admin Dose 0.5 MG; Start 10/05/18 at 07:00 Diagnostic Test (Pha) (Accu-Chek) 1 ea 02 XX ; Start 10/06/18 at 02:00 Insulin Aspart (Novolog Insulin Pen) NOVOLOG *MODERATE* ALGORITHM WITH MEALS BEDTIME SC Last administered on 10/05/18 12:13; Admin Dose 1 UNIT; Start 10/05/18 at 08:00 Levofloxacin (Levaquin) 500 mg DAILY@0600 PO Last administered on 10/05/18 13:07; Admin Dose 500 MG; Start 10/05/18 at 13:00 Enoxaparin Sodium (Lovenox) 40 mg DAILY SC Last administered on 10/05/18 13:06; Admin Dose 40 MG; Start 10/05/18 at 13:00 RICHARD SRINIVASAN MD Oct 05, 2018 16:50
[2018-10-05 19:26] VITALS: BP 118/62; PULSE 81; RESP 18
[2018-10-06] VITALS (17 sets, daily range): BP systolic 104–147; BP diastolic 52–78; PULSE 87–114; RESP 14–20
[2018-10-06] MEDS: IPRATROPIUM (NEB) 0.5 MG/2.5 ML AMP HHN SCH ×6 (00:37→20:25)
[2018-10-06] MEDS: SOD CHLORIDE 0.9% 1,000 ML IV SCH ×2 (01:34→13:30)
[2018-10-06] MEDS: ACCU-CHEK XX SCH ×3 (01:34)
[2018-10-06] MEDS: HYDROCODONE/APAP (5/325) TAB PO PRN (05:15)
[2018-10-06] MEDS: LEVOFLOXACIN 500 MG TAB PO SCH (05:15)
[2018-10-06] MEDS: INSULIN ASPART [NOVOLOG] 3 ML PEN SC SCH ×4 (08:25→23:24)
[2018-10-06] MEDS: FLUTICASONE 0.05% 16 GM NAS SPRAY NASAL SCH ×2 (08:26→21:00)
[2018-10-06] MEDS: LEVOTHYROXINE 150 MCG TAB PO SCH (08:26)
[2018-10-06] MEDS: ENOXAPARIN 40 MG/0.4 ML SYG SC SCH (09:00)
--- NOTE | 2018-10-06 10:42 | PREAC ---
Date/Time of Note Date/Time of Note DATE: 10/06/18 TIME: 10:38 Anesthesia Eval and Record Evaluation Time Pre-Procedure Interview DATE: 10/06/18 TIME: 10:38 Age 63 Sex female NPO: 8 hrs Preoperative diagnosis displaced L knee lateral tibial plateau fracture Planned procedure L knee lateral tibial plateau ORIF Past Medical History Past Medical History: Includes Cardio: HTN, Dyslipidemia Endo: Diabetes Pulm: Other (bronchitis, productive cough x4 weeks) GI: Obesity Surgery & Anesthesia Issues No known issue (hernia, tonsil, gallbladder, cataract surgeries) Meds Anticoagulation: No Beta Sanna within 24 hr: No Reason Beta Sanna not given: Pt. not on B-Sanna Active Scripts Hydrocodone/Acetaminophen ([place] 5-325 Tablet) 1 Each Tablet, 1 TAB PO Q6H PRN for PAIN, #7 TAB Prov:EDWARDO DOMINGO PA-C 09/02/18 Naproxen* (Naprosyn*) 500 Mg Tablet, 500 MG PO BID PRN for PAIN AND/OR INFLAMMATION, #30 TAB Prov:EDWARDO DOMINGO PA-C 09/02/18 Reported Medications Aspirin* (Aspirin* EC) 81 Mg Tablet. 10/15/10 Lisinopril* (Lisinopril*) 10 Mg Tablet 10/15/10 Simvastatin* (Zocor*) 10 Mg Tablet 10/15/10 Glipizide* (Glipizide*) 5 Mg Tablet 10/15/10 Levothyroxine Sodium* (Levoxyl*) 150 Mcg Tablet 10/15/10 Pioglitazone Hcl* (Actos*) 15 Mg Tablet 10/15/10 Metformin* (Glucophage*) 500 Mg Tab 10/15/10 Current Medications Sodium Chloride 1,000 ml @ 80 mls/hr [id number] IV Last administered on 10/06/18at 01:34; Admin Dose 80 MLS/HR; Start 10/05/18 at 00:00 IV Flush (NS 3 ml) 3 ml PER PROTOCOL IV ; Start 10/04/18 at 20:30 Acetaminophen (Tylenol Tab) 650 mg Q6H PRN PO .PAIN 1-3 OR TEMP; Start 10/04/18 at 20:30 Acetaminophen/ Hydrocodone Bitart ([place] (5/325)) 1 tab Q6H PRN PO .MOD PAIN 4- 6 Last administered on 10/06/18at 05:15; Admin Dose 1 TAB; Start 10/04/18 at 20:30 Morphine Sulfate (morphine) 2 mg Q4H PRN IV .SEVERE PAIN 7-10; Start 10/04/18 at 20:30 Docusate Sodium (Colace) 100 mg Q12H PRN PO .CONSTIPATION; Start 10/04/18 at 20:30 Bisacodyl (Dulcolax) 5 mg DAILY PRN PO .CONSTIPATION; Start 10/04/18 at 20:30 Diagnostic Test (Pha) (Accu-Chek) 1 ea 02 XX ; Start 10/05/18 at 02:00 Ondansetron HCl (Zofran Inj) 4 mg Q4 PRN IV NAUSEA/VOMITING; Start 10/04/18 at 21:30 Miscellaneous Information 1 ea NOTE XX ; Start 10/04/18 at 22:00 Glucose (Glutose) 15 gm Q15M PRN PO DECREASED GLUCOSE; Start 10/04/18 at 22:00 Glucose (Glutose) 22.5 gm Q15M PRN PO DECREASED GLUCOSE; Start 10/04/18 at 22:00 Dextrose (D50w Syringe) 25 ml Q15M PRN IV DECREASED GLUCOSE; Start 10/04/18 at 22:00 Dextrose (D50w Syringe) 50 ml Q15M PRN IV DECREASED GLUCOSE; Start 10/04/18 at 22:00 Glucagon (Glucagen) 1 mg Q15M PRN IM DECREASED GLUCOSE; Start 10/04/18 at 22:00 Glucose (Glutose) 15 gm Q15M PRN BUCCAL DECREASED GLUCOSE; Start 10/04/18 at 22:00 Diagnostic Test (Pha) (Accu-Chek) 1 ea 02 XX ; Start 10/05/18 at 02:00 Levothyroxine Sodium (Synthroid) 150 mcg AC BREAKFAST PO Last administered on 10/06/18at 08:26; Admin Dose 150 MCG; Start 10/05/18 at 07:30 Fluticasone Propionate (Flonase 0.05% Nasal) 1 spray BID NASAL Last administered on 10/06/18at 08:26; Admin Dose 1 SPRAY; Start 10/05/18 at 09:00 Ipratropium [place] (Atrovent 0.02% (Neb)) 0.5 mg Q4H RESP THERAPY HHN Last administered on 10/06/18at 05:23; Admin Dose 0.5 MG; Start 10/05/18 at 07:00 Diagnostic Test (Pha) (Accu-Chek) 1 ea 02 XX ; Start 10/06/18 at 02:00 Insulin Aspart (Novolog Insulin Pen) NOVOLOG *MODERATE* ALGORITHM WITH MEALS BEDTIME SC Last administered on 10/06/18at 08:25; Admin Dose 4 UNIT; Start 10/05/18 at 08:00 Levofloxacin (Levaquin) 500 mg DAILY@0600 PO Last administered on 10/06/18at 05:15; Admin Dose 500 MG; Start 10/05/18 at 13:00 Enoxaparin Sodium (Lovenox) 40 mg DAILY SC Last administered on 10/05/18at 13:06; Admin Dose 40 MG; Start 10/05/18 at 13:00 Meds reviewed: Yes Allergies Coded Allergies: No Known Drug Allergies (Verified Allergy, Mild, 09/02/18) Allergies Reviewed: Yes Labs/Studies Labs Reviewed: Reviewed by anesthesiologist Result Diagram: 10/06/1852510/06/18525 Laboratory Tests 10/06/18 05:26 test: Negative Studies: ECG (nsr, septal infarct), CXR ( Mild bronchial wall thickening may be due to bronchitis or asthma. ) Pre-procedure Exam Last vitals Vital Signs Date Temp Pulse Resp B/P (MAP) Pulse Ox O2 O2 Flow FiO2 Time Delivery Rate 10/06/18 98.2 88 16 110/55 97 07:54 (73) 10/06/18 21 05:23 10/04/18 Room Air 21:02 Airway: Adequate mouth opening, Adequate thyromental dist Mallampati: Mallampati II Teeth: Normal Lung: Normal Heart: Normal ASA Physical Status ASA physical status: 3 Emergency: E Planned Anesthetic General/MAC: ETT Nerve block: Other (pt agreed to receive a block (femoral/adductor canal etc)) Pre-operative Attestations Prior to commencing anesthesia and surgery, the patient was re-evaluated, there was verification of: *The patient's identity *The results of appropriate recent lab work and preoperative vital signs *The above evaluation not changing prior to induction *Anesthetic plan, risk benefits, alternative and complications discussed with patient/family; questions answered; patient/family understands, accepts and wishes to proceed. SCOTT COLEMAN Oct 06, 2018 10:42
--- NOTE | 2018-10-06 12:36 | PN ---
Date/Time of Note Date/Time of Note DATE: 10/06/18 TIME: 12:36 Assessment/Plan Lines/Catheters IV Catheter Type (from Nrsg): Peripheral IV Assessment/Plan Assessment/Plan Preop For Left tibial plateau fracture and depression - Pt admitted from ER for planned for ORIF urgently given 3 week delay in surgery - NWB to the E - DM2 mgmt per Primary - Case mgmt - NPO - Cleared by Med and Cards - to OR today ---- Adrián Girard MD Subjective 24 Hr Interval Summary doing well. Pain controlled Exam/Review of Systems Vital Signs Vitals Vital Signs Date Temp Pulse Resp B/P (MAP) Pulse Ox O2 O2 Flow FiO2 Time Delivery Rate 10/06/18 99.1 21:18 10/06/18 88 18 97 21 13:56 10/06/18 113/56 13:53 (75) 10/04/18 Room Air 21:02 Intake and Output 10/05/18 10/05/18 10/06/18 1515:00 23:00 07:00 IntakeIntake Total 1320 ml 400 ml 880 ml BalanceBalance 1320 ml 400 ml 880 ml Exam Musculoskeletal: other (LLE/TA /GSC/EHL intact, silt to the m/l/d/p/fdws, dp/pt 1+, TTP over the lateral tibial plateau) Results Result Diagram: 10/06/18 0526 10/06/18 0526 VANESSA GIRARD MD Oct 06, 2018 12:36
--- NOTE | 2018-10-06 14:08 | PN ---
Date/Time of Note Date/Time of Note DATE: 10/06/18 TIME: 14:08 Assessment/Plan VTE Prophylaxis Risk score (from Ns)>0 risk: 2 SCD applied (from [facility] [place] [facility]): No SCD contraindicated: other Pharmacological prophylaxis: LMWH Lines/Catheters IV Catheter Type (from Nrsg): Peripheral IV Assessment/Plan Assessment/Plan 1. Left depressed lateral tibial plateau fracture, 2. Acute bronchitis/pneumonia, on levaquin 3. DM, HbA1c 12.5, on insulins 4. HTN, hold lisinopril for low BP 5. Hypothyroidism, on synthroid 6. DVT prophylaxis, lovenox Result Diagram: 10/06/1852510/06/18525 Results 24hrs Laboratory Tests Test 10/05/18 17:19 10/05/18 20:33 10/06/18 05:26 10/06/18 07:57 Bedside Glucose 240 H 163 203 White Blood Count 14.4 H Red Blood Count 4.86 Hemoglobin 12.0 Hematocrit 39.1 Mean Corpuscular 80.5 L Volume Mean Corpuscular 24.7 L Hemoglobin Mean Corpuscular 30.7 L Hemoglobin Concent Red Cell 15.2 H Distribution Width Platelet Count 464 H Mean Platelet Volume 10.0 Immature 0.500 H Granulocytes % Neutrophils % 64.7 Lymphocytes % 26.3 Monocytes % 5.8 Eosinophils % 2.2 Basophils % 0.5 Nucleated Red Blood 0.0 Cells % Immature 0.070 H Granulocytes # Neutrophils # 9.3 H Lymphocytes # 3.8 H Monocytes # 0.8 Eosinophils # 0.3 Basophils # 0.1 Nucleated Red Blood 0.0 Cells # Sodium Level 140 Potassium Level 4.3 Chloride Level 105 Carbon Dioxide Level 27 Anion Gap 8 Blood Urea Nitrogen 14 Creatinine 0.48 Est Glomerular > 60 Filtrat Rate mL/min Glucose Level 212 Calcium Level 10.0 Test 10/06/18 12:07 Bedside Glucose 147 Subjective 24 Hr Interval Summary Free Text/Dictation left knee pain Exam/Review of Systems Exam Vitals Vital Signs Date Temp Pulse Resp B/P (MAP) Pulse Ox O2 O2 Flow FiO2 Time Delivery Rate 10/06/18 88 18 97 21 13:56 10/06/18 99.0 113/56 13:53 (75) 10/04/18 Room Air 21:02 Intake and Output 10/05/18 10/05/18 10/06/18 1515:00 23:00 07:00 IntakeIntake Total 1320 ml 400 ml 880 ml BalanceBalance 1320 ml 400 ml 880 ml Constitutional: alert, oriented, well developed, obese Psych: no complaints, nl mood/affect Head: normocephalic, atraumatic Eyes: nl conjunctiva, EOMI, nl lids ENMT: nl external ears & nose, nl lips & teeth, nl nasal mucosa & septum Neck: supple, non-tender Respiratory: clear to auscultation, normal air movement; No congested cough, No crackles/rales, No diminished breath sounds, No intercostal retraction, No labored breathing, No respirations, No tactile fremitus, No wheezing, No other Cardiovascular: regular rate and rhythm, nl pulses; No bruits, No diastolic murmur, No edema, No gallop, No irregular rhythm, No jugular venous distention (JVD), No murmurs/extra sounds, No rub, No systolic murmur, No S3, No S4, No other Gastrointestinal: soft, nl liver, spleen, non-tender Musculoskeletal: nl extremities to inspection Extremities: normal pulses, other (left knee pain) Neurological: PROTOHISTORIAN II-XII intact, nl mental status, nl speech, nl strength Results Results 24hrs Laboratory Tests Test 10/05/18 17:19 10/05/18 20:33 10/06/18 05:26 10/06/18 07:57 Bedside Glucose 240 H 163 203 White Blood Count 14.4 H Red Blood Count 4.86 Hemoglobin 12.0 Hematocrit 39.1 Mean Corpuscular 80.5 L Volume Mean Corpuscular 24.7 L Hemoglobin Mean Corpuscular 30.7 L Hemoglobin Concent Red Cell 15.2 H Distribution Width Platelet Count 464 H Mean Platelet Volume 10.0 Immature 0.500 H Granulocytes % Neutrophils % 64.7 Lymphocytes % 26.3 Monocytes % 5.8 Eosinophils % 2.2 Basophils % 0.5 Nucleated Red Blood 0.0 Cells % Immature 0.070 H Granulocytes # Neutrophils # 9.3 H Lymphocytes # 3.8 H Monocytes # 0.8 Eosinophils # 0.3 Basophils # 0.1 Nucleated Red Blood 0.0 Cells # Sodium Level 140 Potassium Level 4.3 Chloride Level 105 Carbon Dioxide Level 27 Anion Gap 8 Blood Urea Nitrogen 14 Creatinine 0.48 Est Glomerular > 60 Filtrat Rate mL/min Glucose Level 212 Calcium Level 10.0 Test 10/06/18 12:07 Bedside Glucose 147 Medications Medication Current Medications Sodium Chloride 1,000 ml @ 80 mls/hr [id number] IV Last administered on 10/06/18at 01:34; Admin Dose 80 MLS/HR; Start 10/05/18 at 00:00 IV Flush (NS 3 ml) 3 ml PER PROTOCOL IV ; Start 10/04/18 at 20:30 Acetaminophen (Tylenol Tab) 650 mg Q6H PRN PO .PAIN 1-3 OR TEMP; Start 10/04/18 at 20:30 Acetaminophen/ Hydrocodone Bitart ([place] (5/325)) 1 tab Q6H PRN PO .MOD PAIN 4- 6 Last administered on 10/06/18at 05:15; Admin Dose 1 TAB; Start 10/04/18 at 20:30 Morphine Sulfate (morphine) 2 mg Q4H PRN IV .SEVERE PAIN 7-10; Start 10/04/18 at 20:30 Docusate Sodium (Colace) 100 mg Q12H PRN PO .CONSTIPATION; Start 10/04/18 at 20:30 Bisacodyl (Dulcolax) 5 mg DAILY PRN PO .CONSTIPATION; Start 10/04/18 at 20:30 Diagnostic Test (Pha) (Accu-Chek) 1 ea 02 XX ; Start 10/05/18 at 02:00 Ondansetron HCl (Zofran Inj) 4 mg Q4 PRN IV NAUSEA/VOMITING; Start 10/04/18 at 21:30 Miscellaneous Information 1 ea NOTE XX ; Start 10/04/18 at 22:00 Glucose (Glutose) 15 gm Q15M PRN PO DECREASED GLUCOSE; Start 10/04/18 at 22:00 Glucose (Glutose) 22.5 gm Q15M PRN PO DECREASED GLUCOSE; Start 10/04/18 at 22:0 0 Dextrose (D50w Syringe) 25 ml Q15M PRN IV DECREASED GLUCOSE; Start 10/04/18 at 22:00 Dextrose (D50w Syringe) 50 ml Q15M PRN IV DECREASED GLUCOSE; Start 10/04/18 at 22:00 Glucagon (Glucagen) 1 mg Q15M PRN IM DECREASED GLUCOSE; Start 10/04/18 at 22:00 Glucose (Glutose) 15 gm Q15M PRN BUCCAL DECREASED GLUCOSE; Start 10/04/18 at 22:00 Diagnostic Test (Pha) (Accu-Chek) 1 ea 02 XX ; Start 10/05/18 at 02:00 Levothyroxine Sodium (Synthroid) 150 mcg AC BREAKFAST PO Last administered on 10/06/18 08:26; Admin Dose 150 MCG; Start 10/05/18 at 07:30 Fluticasone Propionate (Flonase 0.05% Nasal) 1 spray BID NASAL Last administered on 10/06/18 08:26; Admin Dose 1 SPRAY; Start 10/05/18 at 09:00 Ipratropium [place] (Atrovent 0.02% (Neb)) 0.5 mg Q4H RESP THERAPY HHN Last administered on 10/06/18at 13:55; Admin Dose 0.5 MG; Start 10/05/18 at 07:00 Diagnostic Test (Pha) (Accu-Chek) 1 ea 02 XX ; Start 10/06/18 at 02:00 Insulin Aspart (Novolog Insulin Pen) NOVOLOG *MODERATE* ALGORITHM WITH MEALS BEDTIME SC Last administered on 10/06/18 08:25; Admin Dose 4 UNIT; Start 10/05/18 at 08:00 Levofloxacin (Levaquin) 500 mg DAILY@0600 PO Last administered on 10/06/18 05:15; Admin Dose 500 MG; Start 10/05/18 at 13:00 Enoxaparin Sodium (Lovenox) 40 mg DAILY SC Last administered on 10/05/18 13:06 ; Admin Dose 40 MG; Start 10/05/18 at 13:00 MARIA T MONCADA MD Oct 06, 2018 14:08
--- NOTE | 2018-10-06 15:38 | RADRPT ---
Echocardiogram Report Patient Name: CASANDRA OVERTONYPatient ID: [id number] : 1955 (63y 5m)Study Date: 10/06/2018 8:36:54 AM Gender: FAccession #: [id number] Tech: Star [facility] Location: 2279-[id number] Ref.Physician: RICHARD EDMONDSON Height(Cm): BSA: Weight(Kg): Quality: Technically Difficult StudyAccount #: Procedures: Echocardiographic Report: Transthoracic echocardiogram with complete 2D, M-Mode, and doppler examination. Indications: Pre-op. Measurements: 2D/M Mode Doppler Measurement Value Normal Range Measurement Value Normal Range LVIDd 2D 4.0 [ 3.8 - 5.2 ] cm AV Peak Peng 1.4 [ 100.0 - 170.0 ] cm/sec LVIDs 2D 2.7 [ 2.2 - 3.5 ] cm AV Peak PG 8.0 [ 2.0 - 9.0 ] mmHg LVPWd 2D 1.4 [ 0.6 - 0.9 ] cm LVOT Peak Peng 1.0 [ 70.0 - 110.0 ] cm/sec IVSd 2D 1.4 [ 0.6 - 0.9 ] cm LVOT Peak PG 4.0 [ 2.0 - 6.0 ] mmHg IVS/LVPW 2D 1.0 ratio MV E Peak Peng 0.7 [ 60.0 - 130.0 ] cm/sec AoR Diam 2D 2.9 [ 2.3 - 3.1 ] cm MV A Peak Peng 0.8 [ 100.0 - 120.0 ] cm/sec LA/Ao 2D 1 ratio MV E/A 0.9 [ 0.8 - 1.5 ] ratio LA Dimen 2D 3.6 [ 2.7 - 3.8 ] cm MV Decel Time 158 [ 104 - 258 ] msec Lat E` Peng 0.1 [ 10.0 - 15.0 ] cm/sec MV E/A 0.9 [ 0.8 - 1.5 ] ratio TR Peak Peng 2.0 [ 100.0 - 280.0 ] cm/sec TR Peak PG 17.0 mmHg RVSP 27.0 [ 10.0 - 36.0 ] mmHg Findings: Left Ventricle: Normal left ventricular systolic function. Normal left ventricular cavity size. Mild concentric left ventricular hypertrophy. Ejection fraction is visually estimated at 55-60 %. Tissue Doppler/Mitral Doppler indices are consistent with impaired relaxation (Stage I diastolic dysfunction). Right Ventricle: Normal right ventricular size. Normal right ventricular systolic function. Left Atrium: The left atrium is normal in size. Right Atrium: The right atrium is normal in size. Mitral Valve: Mild mitral leaflet calcification. Mild mitral annular calcification. Trace mitral regurgitation. Aortic Valve: No hemodynamically significant aortic stenosis by doppler. Aortic cusps appear mildly calcified. Tricuspid Valve: Normal appearance of the tricuspid valve. Estimated peak PA systolic pressure 27 mmHg. There is trace tricuspid regurgitation. Pericardium: Normal pericardium with no significant pericardial effusion. Aorta: Normal aortic root. IVC: Normal size and normal respiratory collapse consistent with normal right atrial pressure. Conclusions: Normal left ventricular systolic function. Normal left ventricular cavity size. Mild concentric left ventricular hypertrophy. Ejection fraction is visually estimated at 55-60 %. Tissue Doppler/Mitral Doppler indices are consistent with impaired relaxation (Stage I diastolic dysfunction). Mild mitral leaflet calcification. Mild mitral annular calcification. Trace mitral regurgitation. No hemodynamically significant aortic stenosis by doppler. Aortic cusps appear mildly calcified. Normal appearance of the tricuspid valve. Estimated peak PA systolic pressure 27 mmHg. There is trace tricuspid regurgitation. Electronically Signed By: Richard Edmondson 2018-10-06 15:37:57 PDT
--- NOTE | 2018-10-06 16:49 | RADRPT ---
Vent Rate: 74 bpm RR Interval: 804 msec IA Interval: 180 msec QRS Duration: 89 msec QT Interval: 407 msec QTC Interval: 454 msec P-R-T [place]: 42 - 3 - 63 degrees Sinus rhythm...normal P axis, V-rate 50- 99 Electronically Signed By: Garett Cerna
--- NOTE | 2018-10-06 16:59 | CONS ---
Consult Date/Type/Reason Admit Date/Time Oct 04, 2018 at 20:04 Initial Consult Date 10/05/18 Type of Consultation: CV Requesting Provider: DAVID HURTADO Date/Time of Note DATE: 10/06/18 TIME: 16:57 Subjective CARDIOLOGY FOLLOW UP NOTE S: D/W STAFF pt with no chest pain or pressure. less cough still with foot pain is anxious about surgery but wants it done GREGORY O: General: Obese female in no acute distress HEENT: NC/AT. pupils are equal. round. NECK: NO JVD. no stridor. CV: RRR. systolic murmur; no gallop or rubs. PULM: no wheezing or rhonchi. GI: SOFT, NT, ND, no rebound or guarding Extremity: trace B/L LE edema. no clubbing. neuro: awake and alert, OX3. Psych: calm and pleasant rectal: deferred : normal EKG done October 04 was personally reviewed and normal sinus rhythm. Poor R wave progression otherwise no evidence of ischemia Chest x-ray shows: Mild bronchial wall thickening may be due to bronchitis or asthma. ECHO reviewed Normal left ventricular systolic function. Normal left ventricular cavity size. Mild concentric left ventricular hypertrophy. Ejection fraction is visually estimated at 55-60 %. Tissue Doppler/Mitral Doppler indices are consistent with impaired relaxation (Stage I diastolic dysfunction). Mild mitral leaflet calcification. Mild mitral annular calcification. Trace mitral regurgitation. No hemodynamically significant aortic stenosis by doppler. Aortic cusps appear mildly calcified. Normal appearance of the tricuspid valve. Estimated peak PA systolic pressure 27 mmHg. There is trace tricuspid regurgitation. Objective Vitals Vital Signs Date Temp Pulse Resp B/P (MAP) Pulse Ox O2 O2 Flow FiO2 Time Delivery Rate 10/06/18 88 18 97 21 13:56 10/06/18 99.0 113/56 13:53 (75) 10/04/18 Room Air 21:02 Intake and Output 10/05/18 10/05/18 10/06/18 1515:00 23:00 07:00 IntakeIntake Total 1320 ml 400 ml 880 ml BalanceBalance 1320 ml 400 ml 880 ml Results/Medications Result Diagram: 10/06/18 0526 10/06/18 0526 Results 24 hrs Laboratory Tests Test 10/05/18 17:19 10/05/18 20:33 10/06/18 05:26 10/06/18 07:57 Bedside Glucose 240 H 163 203 White Blood Count 14.4 H Red Blood Count 4.86 Hemoglobin 12.0 Hematocrit 39.1 Mean Corpuscular 80.5 L Volume Mean Corpuscular 24.7 L Hemoglobin Mean Corpuscular 30.7 L Hemoglobin Concent Red Cell 15.2 H Distribution Width Platelet Count 464 H Mean Platelet Volume 10.0 Immature 0.500 H Granulocytes % Neutrophils % 64.7 Lymphocytes % 26.3 Monocytes % 5.8 Eosinophils % 2.2 Basophils % 0.5 Nucleated Red Blood 0.0 Cells % Immature 0.070 H Granulocytes # Neutrophils # 9.3 H Lymphocytes # 3.8 H Monocytes # 0.8 Eosinophils # 0.3 Basophils # 0.1 Nucleated Red Blood 0.0 Cells # Sodium Level 140 Potassium Level 4.3 Chloride Level 105 Carbon Dioxide Level 27 Anion Gap 8 Blood Urea Nitrogen 14 Creatinine 0.48 Est Glomerular > 60 Filtrat Rate mL/min Glucose Level 212 Calcium Level 10.0 Test 10/06/18 12:07 10/06/18 16:20 Bedside Glucose 147 147 Home Meds Active Scripts Hydrocodone/Acetaminophen ([place] 5-325 Tablet) 1 Each Tablet, 1 TAB PO Q6H PRN for PAIN, #7 TAB Prov:EDWARDO DOMINGO PA-C 09/02/18 Naproxen* (Naprosyn*) 500 Mg Tablet, 500 MG PO BID PRN for PAIN AND/OR INFLA MMATION, #30 TAB Prov:EDWARDO DOMINGO PA-C 09/02/18 Reported Medications Aspirin* (Aspirin* EC) 81 Mg Tablet. 10/15/10 Lisinopril* (Lisinopril*) 10 Mg Tablet 10/15/10 Simvastatin* (Zocor*) 10 Mg Tablet 10/15/10 Glipizide* (Glipizide*) 5 Mg Tablet 10/15/10 Levothyroxine Sodium* (Levoxyl*) 150 Mcg Tablet 10/15/10 Pioglitazone Hcl* (Actos*) 15 Mg Tablet 10/15/10 Metformin* (Glucophage*) 500 Mg Tab 10/15/10 Medications Current Medications Sodium Chloride 1,000 ml @ 80 mls/hr [id number] IV Last administered on 10/06/18at 01:34; Admin Dose 80 MLS/HR; Start 10/05/18 at 00:00 IV Flush (NS 3 ml) 3 ml PER PROTOCOL IV ; Start 10/04/18 at 20:30 Acetaminophen (Tylenol Tab) 650 mg Q6H PRN PO .PAIN 1-3 OR TEMP; Start 10/04/18 at 20:30 Acetaminophen/ Hydrocodone Bitart ([place] (5/325)) 1 tab Q6H PRN PO .MOD PAIN 4- 6 Last administered on 10/06/18at 05:15; Admin Dose 1 TAB; Start 10/04/18 at 20:30 Morphine Sulfate (morphine) 2 mg Q4H PRN IV .SEVERE PAIN 7-10; Start 10/04/18 at 20:30 Docusate Sodium (Colace) 100 mg Q12H PRN PO .CONSTIPATION; Start 10/04/18 at 20:30 Bisacodyl (Dulcolax) 5 mg DAILY PRN PO .CONSTIPATION; Start 10/04/18 at 20:30 Diagnostic Test (Pha) (Accu-Chek) 1 ea 02 XX ; Start 10/05/18 at 02:00 Ondansetron HCl (Zofran Inj) 4 mg Q4 PRN IV NAUSEA/VOMITING; Start 10/04/18 at 21:30 Miscellaneous Information 1 ea NOTE XX ; Start 10/04/18 at 22:00 Glucose (Glutose) 15 gm Q15M PRN PO DECREASED GLUCOSE; Start 10/04/18 at 22:00 Glucose (Glutose) 22.5 gm Q15M PRN PO DECREASED GLUCOSE; Start 10/04/18 at 22:00 Dextrose (D50w Syringe) 25 ml Q15M PRN IV DECREASED GLUCOSE; Start 10/04/18 at 22:00 Dextrose (D50w Syringe) 50 ml Q15M PRN IV DECREASED GLUCOSE; Start 10/04/18 at 22:00 Glucagon (Glucagen) 1 mg Q15M PRN IM DECREASED GLUCOSE; Start 10/04/18 at 22:00 Glucose (Glutose) 15 gm Q15M PRN BUCCAL DECREASED GLUCOSE; Start 10/04/18 at 22:00 Diagnostic Test (Pha) (Accu-Chek) 1 ea 02 XX ; Start 10/05/18 at 02:00 Levothyroxine Sodium (Synthroid) 150 mcg AC BREAKFAST PO Last administered on 10/06/18 08:26; Admin Dose 150 MCG; Start 10/05/18 at 07:30 Fluticasone Propionate (Flonase 0.05% Nasal) 1 spray BID NASAL Last administered on 10/06/18 08:26; Admin Dose 1 SPRAY; Start 10/05/18 at 09:00 Ipratropium [place] (Atrovent 0.02% (Neb)) 0.5 mg Q4H RESP THERAPY HHN Last administered on 10/06/18 13:55; Admin Dose 0.5 MG; Start 10/05/18 at 07:00 Diagnostic Test (Pha) (Accu-Chek) 1 ea 02 XX ; Start 10/06/18 at 02:00 Insulin Aspart (Novolog Insulin Pen) NOVOLOG *MODERATE* ALGORITHM WITH MEALS BEDTIME SC Last administered on 10/06/18 08:25; Admin Dose 4 UNIT; Start 10/05/18 at 08:00 Levofloxacin (Levaquin) 500 mg DAILY@0600 PO Last administered on 10/06/18 05:15; Admin Dose 500 MG; Start 10/05/18 at 13:00 Enoxaparin Sodium (Lovenox) 40 mg DAILY SC Last administered on 10/05/18 13:06; Admin Dose 40 MG; Start 10/05/18 at 13:00 Assessment/Plan Hospital Course (Demo Recall) 1. Cardiovascular preop evaluation for left depressed lateral tibial plateau fracture, 2. Acute bronchitis : improved on levaquin 3. DM, HbA1c 12.5, on insulin 4. HTN, now mostly hypotensive/ stable. Hold lisinopril for low BP 5. Hypothyroidism, on synthroid 6. DVT prophylaxis, lovenox Recommendation: Patient has good exercise tolerance per her history and no evidence of anginal chest pain. Denies any history of cardiac disorder. Patient involving formation obtained from the patient, no further cardiac work-up would be indicated. Patient is considered optimized from the cardiac standpoint for both orthopedic surgery with low to moderate risk of cardiovascular event given her risk factor including her diabetes. Her bronchitis treatment and management as per internal medicine team. Thank you for his referral. We will continue to follow along with you RICHARD SRINIVASAN MD [facility] RICHARD SRINIVASAN MD Oct 06, 2018 16:59
[2018-10-06] MEDS ORDERED: POLYMYXIN/BACITRACIN 1L IRRIG ONE ×2 (17:06→19:33)
[2018-10-06] MEDS ORDERED: BUPIVACAINE 0.25% (MPF) 30 ML INJ ONE (17:06)
--- NOTE | 2018-10-06 17:29 | PREAC ---
Date/Time of Note Date/Time of Note DATE: 10/06/18 TIME: 17:26 Anesthesia Eval and Record Evaluation Time Pre-Procedure Interview DATE: 10/06/18 TIME: 17:26 Age 63 Sex female NPO: 8 hrs Preoperative diagnosis tibial fx Planned procedure orif tibia Past Medical History Past Medical History: Includes Cardio: HTN, Dyslipidemia Endo: Diabetes, Hypothyroid Pulm: Other (bronchitis ) Surgery & Anesthesia Issues No known issue Meds Anticoagulation: No Beta Sanna within 24 hr: No Reason Beta Sanna not given: Pt. not on B-Sanna Active Scripts Hydrocodone/Acetaminophen ([place] 5-325 Tablet) 1 Each Tablet, 1 TAB PO Q6H PRN for PAIN, #7 TAB Prov:EDWARDO DOMINGO PA-C 09/02/18 Naproxen* (Naprosyn*) 500 Mg Tablet, 500 MG PO BID PRN for PAIN AND/OR INFLAMMATION, #30 TAB Prov:EDWARDO DOMINGO PA-C 09/02/18 Reported Medications Aspirin* (Aspirin* EC) 81 Mg Tablet. 10/15/10 Lisinopril* (Lisinopril*) 10 Mg Tablet 10/15/10 Simvastatin* (Zocor*) 10 Mg Tablet 10/15/10 Glipizide* (Glipizide*) 5 Mg Tablet 10/15/10 Levothyroxine Sodium* (Levoxyl*) 150 Mcg Tablet 10/15/10 Pioglitazone Hcl* (Actos*) 15 Mg Tablet 10/15/10 Metformin* (Glucophage*) 500 Mg Tab 10/15/10 Current Medications Sodium Chloride 1,000 ml @ 80 mls/hr [id number] IV Last administered on 10/06/18at 01:34; Admin Dose 80 MLS/HR; Start 10/05/18 at 00:00 IV Flush (NS 3 ml) 3 ml PER PROTOCOL IV ; Start 10/04/18 at 20:30 Acetaminophen (Tylenol Tab) 650 mg Q6H PRN PO .PAIN 1-3 OR TEMP; Start 10/04/18 at 20:30 Acetaminophen/ Hydrocodone Bitart ([place] (5/325)) 1 tab Q6H PRN PO .MOD PAIN 4- 6 Last administered on 10/06/18at 05:15; Admin Dose 1 TAB; Start 10/04/18 at 20:30 Morphine Sulfate (morphine) 2 mg Q4H PRN IV .SEVERE PAIN 7-10; Start 10/04/18 at 20:30 Docusate Sodium (Colace) 100 mg Q12H PRN PO .CONSTIPATION; Start 10/04/18 at 20:30 Bisacodyl (Dulcolax) 5 mg DAILY PRN PO .CONSTIPATION; Start 10/04/18 at 20:30 Diagnostic Test (Pha) (Accu-Chek) 1 ea 02 XX ; Start 10/05/18 at 02:00 Ondansetron HCl (Zofran Inj) 4 mg Q4 PRN IV NAUSEA/VOMITING; Start 10/04/18 at 21:30 Miscellaneous Information 1 ea NOTE XX ; Start 10/04/18 at 22:00 Glucose (Glutose) 15 gm Q15M PRN PO DECREASED GLUCOSE; Start 10/04/18 at 22:00 Glucose (Glutose) 22.5 gm Q15M PRN PO DECREASED GLUCOSE; Start 10/04/18 at 22:00 Dextrose (D50w Syringe) 25 ml Q15M PRN IV DECREASED GLUCOSE; Start 10/04/18 at 22:00 Dextrose (D50w Syringe) 50 ml Q15M PRN IV DECREASED GLUCOSE; Start 10/04/18 at 22:00 Glucagon (Glucagen) 1 mg Q15M PRN IM DECREASED GLUCOSE; Start 10/04/18 at 22:00 Glucose (Glutose) 15 gm Q15M PRN BUCCAL DECREASED GLUCOSE; Start 10/04/18 at 22:00 Diagnostic Test (Pha) (Accu-Chek) 1 ea 02 XX ; Start 10/05/18 at 02:00 Levothyroxine Sodium (Synthroid) 150 mcg AC BREAKFAST PO Last administered on 10/06/18at 08:26; Admin Dose 150 MCG; Start 10/05/18 at 07:30 Fluticasone Propionate (Flonase 0.05% Nasal) 1 spray BID NASAL Last administered on 10/06/18 08:26; Admin Dose 1 SPRAY; Start 10/05/18 at 09:00 Ipratropium [place] (Atrovent 0.02% (Neb)) 0.5 mg Q4H RESP THERAPY HHN Last administered on 10/06/18at 13:55; Admin Dose 0.5 MG; Start 10/05/18 at 07:00 Diagnostic Test (Pha) (Accu-Chek) 1 ea 02 XX ; Start 10/06/18 at 02:00 Insulin Aspart (Novolog Insulin Pen) NOVOLOG *MODERATE* ALGORITHM WITH MEALS BEDTIME SC Last administered on 10/06/18at 08:25; Admin Dose 4 UNIT; Start 10/05/18 at 08:00 Levofloxacin (Levaquin) 500 mg DAILY@0600 PO Last administered on 10/06/18at 05:15; Admin Dose 500 MG; Start 10/05/18 at 13:00 Enoxaparin Sodium (Lovenox) 40 mg DAILY SC Last administered on 10/05/18at 13:06; Admin Dose 40 MG; Start 10/05/18 at 13:00 Meds reviewed: Yes Allergies Coded Allergies: No Known Drug Allergies (Verified Allergy, Mild, 09/02/18) Allergies Reviewed: Yes Labs/Studies Labs Reviewed: Reviewed by anesthesiologist Result Diagram: 10/06/1852510/06/18525 Laboratory Tests 10/06/18 05:26 test: N/A Pre-procedure Exam Last vitals Vital Signs Date Temp Pulse Resp B/P (MAP) Pulse Ox O2 O2 Flow FiO2 Time Delivery Rate 10/06/18 88 18 97 21 13:56 10/06/18 99.0 113/56 13:53 (75) 10/04/18 Room Air 21:02 Airway: Adequate mouth opening, Adequate thyromental dist Mallampati: Mallampati III Teeth: Normal Lung: Normal Heart: Normal ASA Physical Status ASA physical status: 3 Emergency: None Pre-operative Attestations Prior to commencing anesthesia and surgery, the patient was re-evaluated, there was verification of: *The patient's identity *The results of appropriate recent lab work and preoperative vital signs *The above evaluation not changing prior to induction *Anesthetic plan, risk benefits, alternative and complications discussed with patient/family; questions answered; patient/family understands, accepts and wishes to proceed. PIYUSH CORTES DO Oct 06, 2018 17:29
[2018-10-06] MEDS ORDERED: ONDANSETRON 4 MG INJ IV PRN ×2 (17:30→21:30)
[2018-10-06] MEDS ORDERED: LABETALOL HCL 20MG INJ IV PRN (17:30)
[2018-10-06] MEDS ORDERED: MEPERIDINE 25 MG INJ IV PRN (17:30)
[2018-10-06] MEDS ORDERED: hydrALAzine 20 MG INJ IV PRN (17:30)
[2018-10-06] MEDS ORDERED: HYDROmorphONE 1 MG/5 ML IV SYRINGE IV PRN ×3 (17:30)
[2018-10-06] MEDS ORDERED: MIDAZOLAM 1 MG/ML 2 ML INJ ONE (17:34)
[2018-10-06] MEDS ORDERED: PROPOFOL 20 ML ONE (17:34)
[2018-10-06] MEDS ORDERED: ROCURONIUM 50 MG INJ ONE ×3 (17:34→20:09)
[2018-10-06] MEDS ORDERED: LIDOCAINE 1% (MDV) 20 ML INJ ONE (17:34)
[2018-10-06] MEDS ORDERED: ROPIVACAINE 0.5 % 30 ML VIAL ONE (17:39)
[2018-10-06] MEDS ORDERED: DEXAMETHASONE 4 MG/ML 5 ML INJ ONE (17:40)
[2018-10-06] MEDS ORDERED: PHENYLephrine (100 MCG/ML) 10ML SYG ONE ×2 (17:54→18:20)
[2018-10-06] MEDS ORDERED: ONDANSETRON 4 MG INJ ONE (17:59)
[2018-10-06] MEDS ORDERED: CEFAZOLIN 1 GM INJ ONE (17:59)
[2018-10-06] MEDS ORDERED: PHENYLephrine 10 MG INJ ONE (18:20)
[2018-10-06] MEDS ORDERED: POLYMYXIN/BACITRACIN 1L IRRIG IRR ONE (19:35)
[2018-10-06] MEDS ORDERED: FENTAnyl 50 MCG/ML VIAL ONE ×2 (19:45→20:31)
[2018-10-06] MEDS ORDERED: BACITRACIN/POLYMYXIN 28.35 GM OINT TOP ONE (20:24)
[2018-10-06] MEDS ORDERED: morphine 10 MG INJ ONE (21:00)
[2018-10-06] MEDS ORDERED: SUGAMMADEX SODIUM 200 MG/2 ML VIAL IV ONE (21:00)
--- NOTE | 2018-10-06 21:15 | PAC ---
Date/Time of Note Date/Time of Note DATE: 10/06/18 TIME: 21:15 Post-Anesthesia Notes Post-Anesthesia Note Last documented vital signs Vital Signs Date Temp Pulse Resp B/P (MAP) Pulse Ox O2 O2 Flow FiO2 Time Delivery Rate 10/06/18 99 102 22 115/63 97 21 5 10/06/18 99.0 113/56 13:53 (75) 10/04/18 Room Air 21:02 Activity: WNL Respiratory function: WNL Cardiovascular function: WNL Mental status: Baseline Pain reasonably controlled: Yes Hydration appropriate: Yes Nausea/Vomiting absent: Yes PIYUSH CORTES DO Oct 06, 2018 21:15
[2018-10-06] MEDS ORDERED: oxyCODONE 5 MG TAB PO PRN (21:30)
[2018-10-06] MEDS ORDERED: DIPHENHYDRAMINE 25 MG CAP PO PRN (21:30)
[2018-10-06] MEDS ORDERED: HYDROmorphONE 1 MG/ML SYG IV PRN (21:30)
[2018-10-06] MEDS ORDERED: CEFAZOLIN 1 GM INJ IV SCH (21:30)
[2018-10-06] MEDS ORDERED: ACETAMINOPHEN 325 MG TAB PO PRN (21:30)
--- NOTE | 2018-10-06 21:36 | OPR ---
Date/Time of Note Date/Time of Note DATE: 10/06/18 TIME: 21:26 Operative Report Procedure Date: Oct 06, 2018 Preoperative Diagnosis Left lateral tibial plateau fracture Schatzker type II Postoperative Diagnosis Left lateral tibial plateau fracture Schatzker type II Operation/Procedure Performed Left knee lateral tibial plateau fracture open reduction internal fixation with allograft Left knee open lateral meniscus repair Surgeon Shade Girard MD Bias Binding Folder None Anesthesia Type: general, other (Popliteal) Anesthesiologist: PIYUSH CORTES DO Tourniquet Time: 120 minutes at 250 mmHg Estimated Blood Loss: minimal Transfusion none Specimen None Grafts/Implants [employer] lateral tibial plateau plate with calcium phosphate cement and allograft cancellus chips Tubes/Drains None Complications none Pt Condition Post Procedure: stable Disposition: PACU Indications Patient is a 63-year-old female with a 3+ week history of a lateral tibial plateau fracture that is split and depressed that presented to the emergency room and given her significant length and time of injury patient was admitted and worked up and indicated for open reduction internal fixation urgently. Risk Note: Patient was explained the risks and benefits of surgery and the patient's [place] language including not limited to infection, bleeding, injury to blood vessels, nerves, ligaments or tendons. Risks of anesthesia, deep vein thrombosis and need for reduce future surgery. Patient understood that she is at high risk of posttraumatic knee arthritis in the future given this fracture. Patient acknowledged these risk by signing the surgical consent form. Procedure Description Patient was met in the preoperative holding area and the correct operative extremity was marked and confirmed both patient and consent. Patient was brought to the operative theater placed on the operative table given preoperative antibiotics and preoperative regional block anesthesia. Patient was then prepped and draped in the normal sterile fashion and timeout was taken and all parties in the room agreed it was a correct patient extremity and procedure. Patient was Iobaned over the incision site. And tourniquet was up to 275 mmHg. A typical anterior lateral approach was made using a hockey-stick incision with the knee in 30 degrees of flexion. Incision was extended down through the iliotibial band proximally and the fascia of the anterior compartment distally. The tibialis anterior muscle was elevated off the proximal tibia to the level of the capsule and the coronary ligament was then incised. The lateral tibial plateau was then exposed and the lateral meniscus was then raised with holding sutures after incision of the coronary ligament. The joint was irrigated thoroughly. The compression fractures were elevated using a distal tibial bone window with a pestle The elevation was carefully achieved under fluoroscopy and then the defect was filled with bone graft and calcium phosphate. The articular surface was shown to be reestablished under fluoroscopic guidance in both the AP, tunnel and lateral x-ray. The proximal tibial locking plate was then placed with proximal subchondral rafting screws placed followed by distal locking screws and screws into the shaft. The joint was irrigated thoroughly and the fracture shown to be shown well reduced under fluoroscopy and the contour of the articular surface was noted to be reestablished. The meniscus was then repaired using an 0 PDS. The remainder of the wound was then irrigated thoroughly and closed in layers with 0 Vicryl followed by 2-0 Vicryl, 3-0 Monocryl followed by a 3-0 running subcuticular stitch and then treated with Dermabond and Mepilex. The wound was then dressed with 4 x 4's and ABDs and placed in a well-padded compressive dressing and then to a T ROM brace locked in full extension. Patient was brought to the PACU in a stable condition and all sponge needle counts were correct and her toes were warm and well perfused. Patient will begin Xarelto for DVT prophylaxis tomorrow for approximately 1 month. Patient should begin toe-touch weightbearing for the next 8 weeks with her knee locked in extension when standing with goal to be fully weightbearing by 12 weeks. She should begin early mobilization and range of motion exercises with the goal to achieve 90 degrees of flexion by approximately 10-14 days postop. SHADE GIRARD MD Oct 06, 2018 21:36
[2018-10-06] MEDS ORDERED: INSULIN ASPART [NOVOLOG] 3 ML PEN SC ONE (23:30)
[2018-10-07] MEDS ORDERED: ACCU-CHEK XX ONE
[2018-10-07] MEDS ORDERED: METOCLOPRAMIDE 10 MG INJ IV ONE (00:30)
[2018-10-07] MEDS: IPRATROPIUM (NEB) 0.5 MG/2.5 ML AMP HHN SCH ×6 (01:14→20:36)
[2018-10-07] MEDS: INSULIN GLARGINE [LANTus] (100 UNITS/ML) SYG SC SCH ×2 (01:26→20:59)
[2018-10-07] MEDS: SOD CHLORIDE 0.9% 1,000 ML IV SCH ×3 (01:28→15:58)
[2018-10-07] MEDS ORDERED: CEFAZOLIN 1 GM/50 ML (PMX) 50 ML IVPB SCH (02:00)
[2018-10-07] MEDS: ACCU-CHEK XX SCH ×3 (02:00→03:26)
[2018-10-07 02:51] VITALS: BP 112/69; PULSE 104; RESP 16
[2018-10-07] MEDS ORDERED: CEFAZOLIN 1 GM/50 ML (PMX) 50 ML IVPB ONE (05:49)
[2018-10-07] MEDS: CEFAZOLIN 1 GM/50 ML (PMX) 50 ML IVPB SCH ×3 (06:37→22:45)
[2018-10-07] MEDS: LEVOFLOXACIN 500 MG TAB PO SCH (06:37)
[2018-10-07] MEDS: LEVOTHYROXINE 150 MCG TAB PO SCH (06:39)
[2018-10-07 08:00] VITALS: BP 116/58; PULSE 70; RESP 20
[2018-10-07] MEDS: CHOLECALCIFEROL 1,000 UNIT TAB PO SCH (08:13)
[2018-10-07] MEDS: ASCORBIC ACID 500 MG TAB PO SCH (08:14)
[2018-10-07] MEDS: SENNA/DOCUSATE NA (8.6MG/50MG) TAB PO SCH ×2 (08:14→20:51)
[2018-10-07] MEDS: GABAPENTIN 300 MG CAP PO SCH ×3 (08:14→20:51)
[2018-10-07] MEDS: PRENATAL VITAMIN PO SCH (08:14)
[2018-10-07] MEDS: FLUTICASONE 0.05% 16 GM NAS SPRAY NASAL SCH ×2 (08:14→20:51)
[2018-10-07] MEDS: FERROUS FUMARATE (SR) TAB PO SCH (08:14)
[2018-10-07] MEDS: INSULIN ASPART [NOVOLOG] 3 ML PEN SC SCH ×4 (08:16→20:58)
--- NOTE | 2018-10-07 08:27 | CONS ---
Consult Date/Type/Reason Admit Date/Time Oct 04, 2018 at 20:04 Initial Consult Date 10/05/18 Type of Consultation: CV Requesting Provider: DAVID HURTADO Date/Time of Note DATE: 10/07/18 TIME: 08:26 Subjective CARDIOLOGY FOLLOW UP NOTE S: D/W STAFF pt with no chest pain or pressure. less cough s/p surgery 10/06/ pt still with foot pain no palpitations O: General: Obese female in no acute distress HEENT: NC/AT. pupils are equal. round. NECK: NO JVD. no stridor. CV: RRR. systolic murmur; no gallop or rubs. PULM: no wheezing or rhonchi. GI: SOFT, NT, ND, no rebound or guarding Extremity: trace B/L LE edema. no clubbing. neuro: awake and alert, OX3. Psych: calm and pleasant rectal: deferred : normal EKG done October 04 was personally reviewed and normal sinus rhythm. Poor R wave progression otherwise no evidence of ischemia Chest x-ray shows: Mild bronchial wall thickening may be due to bronchitis or asthma. ECHO reviewed Normal left ventricular systolic function. Normal left ventricular cavity size. Mild concentric left ventricular hypertrophy. Ejection fraction is visually estimated at 55-60 %. Tissue Doppler/Mitral Doppler indices are consistent with impaired relaxation (Stage I diastolic dysfunction). Mild mitral leaflet calcification. Mild mitral annular calcification. Trace mitral regurgitation. No hemodynamically significant aortic stenosis by doppler. Aortic cusps appear mildly calcified. Normal appearance of the tricuspid valve. Estimated peak PA systolic pressure 27 mmHg. There is trace tricuspid regurgitation. Objective Vitals Vital Signs Date Temp Pulse Resp B/P (MAP) Pulse Ox O2 O2 Flow FiO2 Time Delivery Rate 10/07/18 98.6 70 20 116/58 94 08:00 (77) 10/07/18 Nasal 3.0 05:13 Cannula 10/06/18 21 13:56 Intake and Output 10/06/18 10/06/18 10/07/18 1515:00 23:00 07:00 IntakeIntake Total 2600 ml 530 ml OutputOutput Total 50 ml BalanceBalance 2550 ml 530 ml Results/Medications Result Diagram: 10/07/18 0540 10/07/18 0540 Results 24 hrs Laboratory Tests Test 10/06/18 12:07 10/06/18 16:20 10/06/18 21:37 10/06/18 23:11 Bedside Glucose 147 147 263 H 333 H Test 10/07/18 02:50 10/07/18 05:40 10/07/18 07:56 Bedside Glucose 297 H 270 H White Blood Count 18.3 #H Red Blood Count 4.87 Hemoglobin 12.2 Hematocrit 39.1 Mean Corpuscular 80.3 L Volume Mean Corpuscular 25.1 L Hemoglobin Mean Corpuscular 31.2 L Hemoglobin Concent Red Cell 15.0 H Distribution Width Platelet Count 438 H Mean Platelet Volume 10.1 Immature 0.800 H Granulocytes % Neutrophils % 88.4 H Lymphocytes % 8.5 L Monocytes % 2.1 Eosinophils % 0.0 Basophils % 0.2 Nucleated Red Blood 0.0 Cells % Immature 0.150 H Granulocytes # Neutrophils # 16.2 H Lymphocytes # 1.6 Monocytes # 0.4 Eosinophils # 0.0 Basophils # 0.0 Nucleated Red Blood 0.0 Cells # Sodium Level 141 Potassium Level 4.6 Chloride Level 104 Carbon Dioxide Level 26 Anion Gap 11 Blood Urea Nitrogen 17 Creatinine 0.45 Est Glomerular > 60 Filtrat Rate mL/min Glucose Level 302 H Calcium Level 9.9 Home Meds Active Scripts Hydrocodone/Acetaminophen ([place] 5-325 Tablet) 1 Each Tablet, 1 TAB PO Q6H PRN for PAIN, #7 TAB Prov:EDWARDO DOMINGO PA-C 09/02/18 Naproxen* (Naprosyn*) 500 Mg Tablet, 500 MG PO BID PRN for PAIN AND/OR INFLAMMATION, #30 TAB Prov:EDWARDO DOMINGO PA-C 09/02/18 Reported Medications Aspirin* (Aspirin* EC) 81 Mg Tablet. 10/15/10 Lisinopril* (Lisinopril*) 10 Mg Tablet 10/15/10 Simvastatin* (Zocor*) 10 Mg Tablet 10/15/10 Glipizide* (Glipizide*) 5 Mg Tablet 10/15/10 Levothyroxine Sodium* (Levoxyl*) 150 Mcg Tablet 10/15/10 Pioglitazone Hcl* (Actos*) 15 Mg Tablet 10/15/10 Metformin* (Glucophage*) 500 Mg Tab 10/15/10 Medications Current Medications Sodium Chloride 1,000 ml @ 80 mls/hr [id number] IV Last administered on 10/07/18at 01:28; Admin Dose 80 MLS/HR; Start 10/05/18 at 00:00 IV Flush (NS 3 ml) 3 ml PER PROTOCOL IV ; Start 10/04/18 at 20:30 Acetaminophen (Tylenol Tab) 650 mg Q6H PRN PO .PAIN 1-3 OR TEMP; Start 10/04/18 at 20:30 Acetaminophen/ Hydrocodone Bitart ([place] (5/325)) 1 tab Q6H PRN PO .MOD PAIN 4- 6 Last administered on 10/06/18at 05:15; Admin Dose 1 TAB; Start 10/04/18 at 20:30 Morphine Sulfate (morphine) 2 mg Q4H PRN IV .SEVERE PAIN 7-10; Start 10/04/18 at 20:30 Docusate Sodium (Colace) 100 mg Q12H PRN PO .CONSTIPATION; Start 10/04/18 at 20:30 Bisacodyl (Dulcolax) 5 mg DAILY PRN PO .CONSTIPATION; Start 10/04/18 at 20:30 Diagnostic Test (Pha) (Accu-Chek) 1 ea 02 XX ; Start 10/05/18 at 02:00 Miscellaneous Information 1 ea NOTE XX ; Start 10/04/18 at 22:00 Glucose (Glutose) 15 gm Q15M PRN PO DECREASED GLUCOSE; Start 10/04/18 at 22:00 Glucose (Glutose) 22.5 gm Q15M PRN PO DECREASED GLUCOSE; Start 10/04/18 at 22:00 Dextrose (D50w Syringe) 25 ml Q15M PRN IV DECREASED GLUCOSE; Start 10/04/18 at 22:00 Dextrose (D50w Syringe) 50 ml Q15M PRN IV DECREASED GLUCOSE; Start 10/04/18 at 22:00 Glucagon (Glucagen) 1 mg Q15M PRN IM DECREASED GLUCOSE; Start 10/04/18 at 22:00 Glucose (Glutose) 15 gm Q15M PRN BUCCAL DECREASED GLUCOSE; Start 10/04/18 at 22:00 Diagnostic Test (Pha) (Accu-Chek) 1 ea 02 XX ; Start 10/05/18 at 02:00 Levothyroxine Sodium (Synthroid) 150 mcg AC BREAKFAST PO Last administered on 10/07/18at 06:39; Admin Dose 150 MCG; Start 10/05/18 at 07:30 Fluticasone Propionate (Flonase 0.05% Nasal) 1 spray BID NASAL Last administered on 10/07/18 08:14; Admin Dose 1 SPRAY; Start 10/05/18 at 09:00 Ipratropium [place] (Atrovent 0.02% (Neb)) 0.5 mg Q4H RESP THERAPY HHN Last administered on 10/07/18 05:12; Admin Dose 0.5 MG; Start 10/05/18 at 07:00 Diagnostic Test (Pha) (Accu-Chek) 1 ea 02 XX ; Start 10/06/18 at 02:00 Insulin Aspart (Novolog Insulin Pen) NOVOLOG *MODERATE* ALGORITHM WITH MEALS BEDTIME SC Last administered on 10/07/18 08:16; Admin Dose 8 UNIT; Start 10/05/18 at 08:00 Levofloxacin (Levaquin) 500 mg DAILY@0600 PO Last administered on 10/07/18at 06:37; Admin Dose 500 MG; Start 10/05/18 at 13:00 Senna/Docusate Sodium (Senokot-S) 1 tab BID PO Last administered on 10/07/18 08:14; Admin Dose 1 TAB; Start 10/07/18 at 09:00 Docusate Sodium/ Ferrous Fumarate ([place]ina-Sequels) 1 tab DAILY PO Last administered on 10/07/18at 08:14; Admin Dose 1 TAB; Start 10/07/18 at 09:00 Ondansetron HCl (Zofran Inj) 4 mg Q4H PRN IV NAUSEA AND/OR VOMITING; Start 10/06/18 at 21:30 Diphenhydramine HCl (Benadryl) 25 mg Q4H PRN PO ITCHING; Start 10/06/18 at 21:30 Rivaroxaban (Xarelto) 10 mg WITH DINNER PO ; Start 10/07/18 at 18:05 Oxycodone HCl (Roxicodone) 5 mg Q4H PRN PO MODERATE PAIN LEVEL 4-6; Start 10/06/18 at 21:30 Acetaminophen (Tylenol Tab) 325 mg Q4H PRN PO MILD PAIN(1-3)OR ELEVATED TEMP; Start 10/06/18 at 21:30 Hydromorphone HCl (Dilaudid) 1 mg Q3H PRN IV SEVERE PAIN LEVEL 7-10; Start 10/06/18 at 21:30 Gabapentin (Neurontin) 300 mg TID PO Last administered on 10/07/18 08:14; Admin Dose 300 MG; Start 10/07/18 at 09:00 Cholecalciferol (Vitamin D) 5,000 unit DAILY PO Last administered on 10/07/18 08:13; Admin Dose 5,000 UNIT; Start 10/07/18 at 09:00 Ascorbic Acid (Vitamin C) 1,000 mg DAILY PO Last administered on 10/07/18 08:14; Admin Dose 1,000 MG; Start 10/07/18 at 09:00 Prenat Multivit/ [place]/Iron/Folic Ac () 1 tab DAILY PO Last administered on 10/07/18 08:14; Admin Dose 1 TAB; Start 10/07/18 at 09:00 Insulin Glargine (Lantus) 10 units DAILY@2000 SC Last administered on 10/07/18 01:26; Admin Dose 10 UNITS; Start 10/07/18 at 01:00 Cefazolin Sodium 50 ml @ 100 mls/hr Q8 IVPB Last administered on 10/07/18 06:37; Admin Dose 100 MLS/HR; Start 10/07/18 at 07:30; Stop 10/08/18 at 14:29 Assessment/Plan Hospital Course (Demo Recall) 1. left depressed lateral tibial plateau fracture: s/p surgery 2. Acute bronchitis : improved on levaquin 3. DM, HbA1c 12.5, on insulin 4. HTN, now mostly hypotensive/ stable. Hold lisinopril for low BP 5. Hypothyroidism, on synthroid 6. DVT prophylaxis, lovenox Recommendation: Continue with the current cardiac care Postop care as per podiatry DVT prophylaxis Thank you for his referral. We will continue to follow along with you RICHARD SRINIVASAN MD [facility] RICHARD SRINIVASAN MD Oct 07, 2018 08:27
--- NOTE | 2018-10-07 11:32 | PN ---
Date/Time of Note Date/Time of Note DATE: 10/07/18 TIME: 11:24 Assessment/Plan VTE Prophylaxis Risk score (from Ns)>0 risk: 9 SCD applied (from Ns): Yes Pharmacological prophylaxis: LMWH Lines/Catheters IV C[facility] (from [facility] Peripheral IV Urinary Cath still in place: No Assessment/Plan Assessment/Plan 1. Left knee lateral tibial plateau fracture open reduction internal fixation with allograft and left knee open lateral meniscus repair on 10/06/2018, 2. Acute bronchitis/pneumonia, on levaquin 3. DM, HbA1c 12.5, on insulins 4. HTN, hold lisinopril for low BP 5. Hypothyroidism, on synthroid 6. DVT prophylaxis, lovenox Result Diagram: 10/07/18 0540 10/07/18 0540 Results 24hrs Laboratory Tests Test 10/06/18 12:07 10/06/18 16:20 10/06/18 21:37 10/06/18 23:11 Bedside Glucose 147 147 263 H 333 H Test 10/07/18 02:50 10/07/18 05:40 10/07/18 07:56 Bedside Glucose 297 H 270 H White Blood Count 18.3 #H Red Blood Count 4.87 Hemoglobin 12.2 Hematocrit 39.1 Mean Corpuscular 80.3 L Volume Mean Corpuscular 25.1 L Hemoglobin Mean Corpuscular 31.2 L Hemoglobin Concent Red Cell 15.0 H Distribution Width Platelet Count 438 H Mean Platelet Volume 10.1 Immature 0.800 H Granulocytes % Neutrophils % 88.4 H Lymphocytes % 8.5 L Monocytes % 2.1 Eosinophils % 0.0 Basophils % 0.2 Nucleated Red Blood 0.0 Cells % Immature 0.150 H Granulocytes # Neutrophils # 16.2 H Lymphocytes # 1.6 Monocytes # 0.4 Eosinophils # 0.0 Basophils # 0.0 Nucleated Red Blood 0.0 Cells # Sodium Level 141 Potassium Level 4.6 Chloride Level 104 Carbon Dioxide Level 26 Anion Gap 11 Blood Urea Nitrogen 17 Creatinine 0.45 Est Glomerular > 60 Filtrat Rate mL/min Glucose Level 302 H Calcium Level 9.9 Exam/Review of Systems Exam Vitals Vital Signs Date Temp Pulse Resp B/P (MAP) Pulse Ox O2 O2 Flow FiO2 Time Delivery Rate 10/07/18 98.6 70 20 116/58 94 08:00 (77) 10/07/18 Nasal 3.0 05:13 Cannula 10/06/18 21 13:56 Intake and Output 10/06/18 10/06/18 10/07/18 1515:00 23:00 07:00 IntakeIntake Total 2600 ml 530 ml OutputOutput Total 50 ml BalanceBalance 2550 ml 530 ml Results Results 24hrs Laboratory Tests Test 10/06/18 12:07 10/06/18 16:20 10/06/18 21:37 10/06/18 23:11 Bedside Glucose 147 147 263 H 333 H Test 10/07/18 02:50 10/07/18 05:40 10/07/18 07:56 Bedside Glucose 297 H 270 H White Blood Count 18.3 #H Red Blood Count 4.87 Hemoglobin 12.2 Hematocrit 39.1 Mean Corpuscular 80.3 L Volume Mean Corpuscular 25.1 L Hemoglobin Mean Corpuscular 31.2 L Hemoglobin Concent Red Cell 15.0 H Distribution Width Platelet Count 438 H Mean Platelet Volume 10.1 Immature 0.800 H Granulocytes % Neutrophils % 88.4 H Lymphocytes % 8.5 L Monocytes % 2.1 Eosinophils % 0.0 Basophils % 0.2 Nucleated Red Blood 0.0 Cells % Immature 0.150 H Granulocytes # Neutrophils # 16.2 H Lymphocytes # 1.6 Monocytes # 0.4 Eosinophils # 0.0 Basophils # 0.0 Nucleated Red Blood 0.0 Cells # Sodium Level 141 Potassium Level 4.6 Chloride Level 104 Carbon Dioxide Level 26 Anion Gap 11 Blood Urea Nitrogen 17 Creatinine 0.45 Est Glomerular > 60 Filtrat Rate mL/min Glucose Level 302 H Calcium Level 9.9 Medications Medication Current Medications Sodium Chloride 1,000 ml @ 80 mls/hr [id number] IV Last administered on 10/07/18at 01:28; Admin Dose 80 MLS/HR; Start 10/05/18 at 00:00 IV Flush (NS 3 ml) 3 ml PER PROTOCOL IV ; Start 10/04/18 at 20:30 Acetaminophen (Tylenol Tab) 650 mg Q6H PRN PO .PAIN 1-3 OR TEMP; Start 10/04/18 at 20:30 Acetaminophen/ Hydrocodone Bitart ([place] (5/325)) 1 tab Q6H PRN PO .MOD PAIN 4- 6 Last administered on 10/06/18at 05:15; Admin Dose 1 TAB; Start 10/04/18 at 20:30 Morphine Sulfate (morphine) 2 mg Q4H PRN IV .SEVERE PAIN 7-10; Start 10/04/18 at 20:30 Docusate Sodium (Colace) 100 mg Q12H PRN PO .CONSTIPATION; Start 10/04/18 at 2 0:30 Bisacodyl (Dulcolax) 5 mg DAILY PRN PO .CONSTIPATION; Start 10/04/18 at 20:30 Diagnostic Test (Pha) (Accu-Chek) 1 ea 02 XX ; Start 10/05/18 at 02:00 Miscellaneous Information 1 ea NOTE XX ; Start 10/04/18 at 22:00 Glucose (Glutose) 15 gm Q15M PRN PO DECREASED GLUCOSE; Start 10/04/18 at 22:00 Glucose (Glutose) 22.5 gm Q15M PRN PO DECREASED GLUCOSE; Start 10/04/18 at 22:00 Dextrose (D50w Syringe) 25 ml Q15M PRN IV DECREASED GLUCOSE; Start 10/04/18 at 22:00 Dextrose (D50w Syringe) 50 ml Q15M PRN IV DECREASED GLUCOSE; Start 10/04/18 at 22:00 Glucagon (Glucagen) 1 mg Q15M PRN IM DECREASED GLUCOSE; Start 10/04/18 at 22:00 Glucose (Glutose) 15 gm Q15M PRN BUCCAL DECREASED GLUCOSE; Start 10/04/18 at 22:00 Diagnostic Test (Pha) (Accu-Chek) 1 ea 02 XX ; Start 10/05/18 at 02:00 Levothyroxine Sodium (Synthroid) 150 mcg AC BREAKFAST PO Last administered on 10/07/18at 06:39; Admin Dose 150 MCG; Start 10/05/18 at 07:30 Fluticasone Propionate (Flonase 0.05% Nasal) 1 spray BID NASAL Last administered on 10/07/18at 08:14; Admin Dose 1 SPRAY; Start 10/05/18 at 09:00 Ipratropium [place] (Atrovent 0.02% (Neb)) 0.5 mg Q4H RESP THERAPY HHN Last administered on 10/07/18at 05:12; Admin Dose 0.5 MG; Start 10/05/18 at 07:00 Diagnostic Test (Pha) (Accu-Chek) 1 ea 02 XX ; Start 10/06/18 at 02:00 Insulin Aspart (Novolog Insulin Pen) NOVOLOG *MODERATE* ALGORITHM WITH MEALS BEDTIME SC Last administered on 10/07/18 08:16; Admin Dose 8 UNIT; Start 10/05/18 at 08:00 Levofloxacin (Levaquin) 500 mg DAILY@0600 PO Last administered on 10/07/18 06:37; Admin Dose 500 MG; Start 10/05/18 at 13:00 Senna/Docusate Sodium (Senokot-S) 1 tab BID PO Last administered on 10/07/18 08:14; Admin Dose 1 TAB; Start 10/07/18 at 09:00 Docusate Sodium/ Ferrous Fumarate (Christina-Sequels) 1 tab DAILY PO Last a dministered on 10/07/18 08:14; Admin Dose 1 TAB; Start 10/07/18 at 09:00 Ondansetron HCl (Zofran Inj) 4 mg Q4H PRN IV NAUSEA AND/OR VOMITING; Start 10/06/18 at 21:30 Diphenhydramine HCl (Benadryl) 25 mg Q4H PRN PO ITCHING; Start 10/06/18 at 21:30 Rivaroxaban (Xarelto) 10 mg WITH DINNER PO ; Start 10/07/18 at 18:05 Oxycodone HCl (Roxicodone) 5 mg Q4H PRN PO MODERATE PAIN LEVEL 4-6; Start 10/06 at 21:30 Acetaminophen (Tylenol Tab) 325 mg Q4H PRN PO MILD PAIN(1-3)OR ELEVATED TEMP; Start 10/06/18 at 21:30 Hydromorphone HCl (Dilaudid) 1 mg Q3H PRN IV SEVERE PAIN LEVEL 7-10; Start 10/06/18 at 21:30 Gabapentin (Neurontin) 300 mg TID PO Last administered on 10/07/18 08:14; Admin Dose 300 MG; Start 10/07/18 at 09:00 Cholecalciferol (Vitamin D) 5,000 unit DAILY PO Last administered on 10/07/18 08:13; Admin Dose 5,000 UNIT; Start 10/07/18 at 09:00 Ascorbic Acid (Vitamin C) 1,000 mg DAILY PO Last administered on 4/24/19at 08:14; Admin Dose 1,000 MG; Start 10/07/18 at 09:00 Prenat Multivit/ [place]/Iron/Folic Ac () 1 tab DAILY PO Last administered on 10/07/18at 08:14; Admin Dose 1 TAB; Start 10/07/18 at 09:00 Insulin Glargine (Lantus) 10 units DAILY@2000 SC Last administered on 10/07/18at 01:26; Admin Dose 10 UNITS; Start 10/07/18 at 01:00 Cefazolin Sodium 50 ml @ 100 mls/hr Q8 IVPB Last administered on 10/07/18at 06:37; Admin Dose 100 MLS/HR; Start 10/07/18 at 07:30; Stop 10/08/18 at 14:29 MARIA T MONCADA MD Oct 07, 2018 11:32
--- NOTE | 2018-10-07 11:58 | PN ---
Date/Time of Note Date/Time of Note DATE: 10/07/18 TIME: 11:54 Assessment/Plan VTE Prophylaxis Risk score (from Ns)>0 risk: 9 SCD applied (from Ns): Yes Pharmacological prophylaxis: LMWH Lines/Catheters IV [facility] Type (from [facility]): Peripheral IV Urinary Cath still in place: No Assessment/Plan Assessment/Plan 1. Left knee lateral tibial plateau fracture open reduction internal fixation with allograft and left knee open lateral meniscus repair on 10/06/2018, follow up with surgery and PT 2. Left foot drooping, prob due to nerve block for surgery, follow up with neurology and ortho 3. Acute bronchitis/pneumonia, on augmentin 4. DM, HbA1c 12.5, on insulins 5. HTN, hold lisinopril for low BP 6. Hypothyroidism, on synthroid 7. DVT prophylaxis, lovenox Result Diagram: 10/07/18 0540 10/07/18 0540 Results 24hrs Laboratory Tests Test 10/06/18 12:07 10/06/18 16:20 10/06/18 21:37 10/06/18 23:11 Bedside Glucose 147 147 263 H 333 H Test 10/07/18 02:50 10/07/18 05:40 10/07/18 07:56 Bedside Glucose 297 H 270 H White Blood Count 18.3 #H Red Blood Count 4.87 Hemoglobin 12.2 Hematocrit 39.1 Mean Corpuscular 80.3 L Volume Mean Corpuscular 25.1 L Hemoglobin Mean Corpuscular 31.2 L Hemoglobin Concent Red Cell 15.0 H Distribution Width Platelet Count 438 H Mean Platelet Volume 10.1 Immature 0.800 H Granulocytes % Neutrophils % 88.4 H Lymphocytes % 8.5 L Monocytes % 2.1 Eosinophils % 0.0 Basophils % 0.2 Nucleated Red Blood 0.0 Cells % Immature 0.150 H Granulocytes # Neutrophils # 16.2 H Lymphocytes # 1.6 Monocytes # 0.4 Eosinophils # 0.0 Basophils # 0.0 Nucleated Red Blood 0.0 Cells # Sodium Level 141 Potassium Level 4.6 Chloride Level 104 Carbon Dioxide Level 26 Anion Gap 11 Blood Urea Nitrogen 17 Creatinine 0.45 Est Glomerular > 60 Filtrat Rate mL/min Glucose Level 302 H Calcium Level 9.9 Subjective 24 Hr Interval Summary Free Text/Dictation unable to move left foot and no sensation below the left ankle Exam/Review of Systems Exam Vitals Vital Signs Date Temp Pulse Resp B/P (MAP) Pulse Ox O2 O2 Flow FiO2 Time Delivery Rate 10/07/18 98.6 70 20 116/58 94 08:00 (77) 10/07/18 Nasal 3.0 05:13 Cannula 10/06/18 21 13:56 Intake and Output 10/06/18 10/06/18 10/07/18 1515:00 23:00 07:00 IntakeIntake Total 2600 ml 530 ml OutputOutput Total 50 ml BalanceBalance 2550 ml 530 ml Constitutional: alert, oriented, well developed Psych: no complaints, nl mood/affect Head: normocephalic, atraumatic Eyes: nl conjunctiva, EOMI, nl lids, PERRL ENMT: nl external ears & nose, nl lips & teeth, nl nasal mucosa & septum Neck: supple, non-tender Respiratory: clear to auscultation, normal air movement; No congested cough, No crackles/rales, No diminished breath sounds, No intercostal retraction, No labored breathing, No respirations, No tactile fremitus, No wheezing, No other Cardiovascular: regular rate and rhythm, nl pulses; No bruits, No diastolic murmur, No edema, No gallop, No irregular rhythm, No jugular venous distention (JVD), No murmurs/extra sounds, No rub, No systolic murmur, No S3, No S4, No other Gastrointestinal: soft, nl liver, spleen, non-tender; No ascites, No bowel sounds, No distended, No firm, No hepatomegaly, No mass, No rebound or guarding, No splenomegaly, No surgical scars, No tender, No other Extremities: other (s/p left knee surgery) Neurological: [employer] II-XII intact, nl mental status, nl speech, other (left foot unable to do dorsal flexion, no sensation ) Results Results 24hrs Laboratory Tests Test 10/06/18 12:07 10/06/18 16:20 10/06/18 21:37 10/06/18 23:11 Bedside Glucose 147 147 263 H 333 H Test 10/07/18 02:50 10/07/18 05:40 10/07/18 07:56 Bedside Glucose 297 H 270 H White Blood Count 18.3 #H Red Blood Count 4.87 Hemoglobin 12.2 Hematocrit 39.1 Mean Corpuscular 80.3 L Volume Mean Corpuscular 25.1 L Hemoglobin Mean Corpuscular 31.2 L Hemoglobin Concent Red Cell 15.0 H Distribution Width Platelet Count 438 H Mean Platelet Volume 10.1 Immature 0.800 H Granulocytes % Neutrophils % 88.4 H Lymphocytes % 8.5 L Monocytes % 2.1 Eosinophils % 0.0 Basophils % 0.2 Nucleated Red Blood 0.0 Cells % Immature 0.150 H Granulocytes # Neutrophils # 16.2 H Lymphocytes # 1.6 Monocytes # 0.4 Eosinophils # 0.0 Basophils # 0.0 Nucleated Red Blood 0.0 Cells # Sodium Level 141 Potassium Level 4.6 Chloride Level 104 Carbon Dioxide Level 26 Anion Gap 11 Blood Urea Nitrogen 17 Creatinine 0.45 Est Glomerular > 60 Filtrat Rate mL/min Glucose Level 302 H Calcium Level 9.9 Medications Medication Current Medications Sodium Chloride 1,000 ml @ 80 mls/hr [id number] IV Last administered on 10/07/18at 01:28; Admin Dose 80 MLS/HR; Start 10/05/18 at 00:00 IV Flush (NS 3 ml) 3 ml PER PROTOCOL IV ; Start 10/04/18 at 20:30 Acetaminophen (Tylenol Tab) 650 mg Q6H PRN PO .PAIN 1-3 OR TEMP; Start 10/04/18 at 20:30 Acetaminophen/ Hydrocodone Bitart ([place] (5/325)) 1 tab Q6H PRN PO .MOD PAIN 4- 6 Last administered on 10/06/18at 05:15; Admin Dose 1 TAB; Start 10/04/18 at 20:30 Morphine Sulfate (morphine) 2 mg Q4H PRN IV .SEVERE PAIN 7-10; Start 10/04/18 at 20:30 Docusate Sodium (Colace) 100 mg Q12H PRN PO .CONSTIPATION; Start 10/04/18 at 20:30 Bisacodyl (Dulcolax) 5 mg DAILY PRN PO .CONSTIPATION; Start 10/04/18 at 20:30 Diagnostic Test (Pha) (Accu-Chek) 1 ea 02 XX ; Start 10/05/18 at 02:00 Miscellaneous Information 1 ea NOTE XX ; Start 10/04/18 at 22:00 Glucose (Glutose) 15 gm Q15M PRN PO DECREASED GLUCOSE; Start 10/04/18 at 22:00 Glucose (Glutose) 22.5 gm Q15M PRN PO DECREASED GLUCOSE; Start 10/04/18 at 22:00 Dextrose (D50w Syringe) 25 ml Q15M PRN IV DECREASED GLUCOSE; Start 10/04/18 at 22:00 Dextrose (D50w Syringe) 50 ml Q15M PRN IV DECREASED GLUCOSE; Start 10/04/18 at 22:00 Glucagon (Glucagen) 1 mg Q15M PRN IM DECREASED GLUCOSE; Start 10/04/18 at 22:00 Glucose (Glutose) 15 gm Q15M PRN BUCCAL DECREASED GLUCOSE; Start 10/04/18 at 22:00 Diagnostic Test (Pha) (Accu-Chek) 1 ea 02 XX ; Start 10/05/18 at 02:00 Levothyroxine Sodium (Synthroid) 150 mcg AC BREAKFAST PO Last administered on 10/07/18at 06:39; Admin Dose 150 MCG; Start 10/05/18 at 07:30 Fluticasone Propionate (Flonase 0.05% Nasal) 1 spray BID NASAL Last administered on 10/07/18at 08:14; Admin Dose 1 SPRAY; Start 10/05/18 at 09:00 Ipratropium [place] (Atrovent 0.02% (Neb)) 0.5 mg Q4H RESP THERAPY HHN Last a dministered on 10/07/18at 05:12; Admin Dose 0.5 MG; Start 10/05/18 at 07:00 Diagnostic Test (Pha) (Accu-Chek) 1 ea 02 XX ; Start 10/06/18 at 02:00 Insulin Aspart (Novolog Insulin Pen) NOVOLOG *MODERATE* ALGORITHM WITH MEALS BEDTIME SC Last administered on 10/07/18at 08:16; Admin Dose 8 UNIT; Start 10/05/18 at 08:00 Levofloxacin (Levaquin) 500 mg DAILY@0600 PO Last administered on 10/07/18at 06:37; Admin Dose 500 MG; Start 10/05/18 at 13:00 Senna/Docusate Sodium (Senokot-S) 1 tab BID PO Last administered on 10/07/18at 08:14; Admin Dose 1 TAB; Start 10/07/18 at 09:00 Docusate Sodium/ Ferrous Fumarate ([place]ina-Sequels) 1 tab DAILY PO Last administered on 10/07/18 08:14; Admin Dose 1 TAB; Start 10/07/18 at 09:00 Ondansetron HCl (Zofran Inj) 4 mg Q4H PRN IV NAUSEA AND/OR VOMITING; Start 10/06/18 at 21:30 Diphenhydramine HCl (Benadryl) 25 mg Q4H PRN PO ITCHING; Start 10/06/18 at 21:30 Rivaroxaban (Xarelto) 10 mg WITH DINNER PO ; Start 10/07/18 at 18:05 Oxycodone HCl (Roxicodone) 5 mg Q4H PRN PO MODERATE PAIN LEVEL 4-6; Start 10/06/18 at 21:30 Acetaminophen (Tylenol Tab) 325 mg Q4H PRN PO MILD PAIN(1-3)OR ELEVATED TEMP; Start 10/06/18 at 21:30 Hydromorphone HCl (Dilaudid) 1 mg Q3H PRN IV SEVERE PAIN LEVEL 7-10; Start 10/06/18 at 21:30 Gabapentin (Neurontin) 300 mg TID PO Last administered on 10/07/18 08:14; Admin Dose 300 MG; Start 10/07/18 at 09:00 Cholecalciferol (Vitamin D) 5,000 unit DAILY PO Last administered on 10/07/18 08:13; Admin Dose 5,000 UNIT; Start 10/07/18 at 09:00 Ascorbic Acid (Vitamin C) 1,000 mg DAILY PO Last administered on 10/07/18 08:14; Admin Dose 1,000 MG; Start 10/07/18 at 09:00 Prenat Multivit/ [place]/Iron/Folic Ac () 1 tab DAILY PO Last administered on 10/07/18 08:14; Admin Dose 1 TAB; Start 10/07/18 at 09:00 Insulin Glargine (Lantus) 10 units DAILY@2000 SC Last administered on 10/07/18 01:26; Admin Dose 10 UNITS; Start 10/07/18 at 01:00 Cefazolin Sodium 50 ml @ 100 mls/hr Q8 IVPB Last administered on 10/07/18 06:37; Admin Dose 100 MLS/HR; Start 10/07/18 at 07:30; Stop 10/08/18 at 14:29 MARIA T MONCADA MD Oct 07, 2018 11:58
[2018-10-07] MEDS: AMOXICILLIN/CLAV 875 MG TAB PO SCH ×2 (13:46→20:51)
--- NOTE | 2018-10-07 15:32 | PN ---
Date/Time of Note Date/Time of Note DATE: 10/07/18 TIME: 15:32 Assessment/Plan Lines/Catheters IV Catheter Type (from Nrsg): Peripheral IV [place] in Place (from Nrsg): No Assessment/Plan Assessment/Plan POD#1 S/p Left knee tibial plateau ORIF - NWB to the LLE - PT to GT - PO pain meds - will need to be DC'd on Pain meds and 6 weeks of Xarelto 10 mg Po qday for DVT prophx - SCDs, teds, Case mgmt - Likely DC home tomorrow - patient to follow up with me in 1 week at [facility] [place] --- Adrián Girard MD Subjective 24 Hr Interval Summary Pain well controlled Exam/Review of Systems Vital Signs Vitals Vital Signs Date Temp Pulse Resp B/P (MAP) Pulse Ox O2 O2 Flow FiO2 Time Delivery Rate 10/08/18 91 18 95 21 08:17 10/08/18 98.0 102/50 Room Air 07:20 (67) 10/07/18 3.0 05:13 Intake and Output 10/07/18 10/07/18 10/08/18 1515:00 23:00 07:00 IntakeIntake Total 450 ml 875 ml 1015 ml OutputOutput Total 700 ml BalanceBalance 450 ml 875 ml 315 ml Exam Musculoskeletal: other (Left leg wound c/d/i./ weak but intact TA/GSC/EHL with 5/5 PF/Eversion and inversion and 3+/5 DF/EHL. SILT to the m/l/d/p/fdws but decreased to the dorsum. CR Brisk) Results Result Diagram: 10/08/18 0558 10/08/18 0558 VANESSA GIRARD MD Oct 07, 2018 15:32
--- NOTE | 2018-10-07 15:45 | CONS ---
Assessment/Plan Assessment/Plan Hospital Course 63 yo F with HTN, DM, obesity and other comorbidities who was admitted for an urgent L tibia surgery. Now s/p ORIF on 10/06/18, and noted post-operatively to have L leg/foot weakness and sensory loss for which neurology is consulted. Of note, she had a L popliteal regional block, which is a likely contributor. Perioperative stroke is, though, not entirely excluded. LDL 67 P: CTH without contrast for further characterization Ok to give Xarelto pending the above; LDL is at goal Cont other medical management per primary PT/OT as tolerated Will follow clinically, to recommend neurologic studies, as necessary Consultation Date/Type/Reason Admit Date/Time Oct 04, 2018 at 20:04 Type of Consult Neurology Requesting Provider: DAVID HURTADO Date/Time of Note DATE: 10/07/18 TIME: 15:45 Hx of Present Illness 63 yo F with hx of HTN, DM and other comorbidities who was referred to [facility] for a L tibia surgery. The pt states that she has been unable to move her ankle/foot post-operatively. She states that her sensation has slightly improved today. It is additionally elsewhere noted: Hx of Present Illness Chief complaint: Left lateral tibial plateau fracture 63-year-old woman presents with left knee pain status post depressed lateral left tibial plateau fracture that occurred 1 month ago. She was referred here by her orthopedic surgeon for preop workup and admission pending ORIF tomorrow morning. She denies any recent redness or swelling to the knee, no fevers or chills. She does however report that she has been dealing with a cough along wi th nasal congestion and left ear congestion for the past few days. On a normal basis she is an active female. She is able to walk up and down steps without any chest pain or shortness of breath. She denies any previous issues with anesthesia. negative unless noted otherwise in HPI Exam/Review of Systems Exam Vitals Vital Signs Date Temp Pulse Resp B/P (MAP) Pulse Ox O2 O2 Flow FiO2 Time Delivery Rate 10/07/18 98.6 70 20 116/58 94 08:00 (77) 10/07/18 Nasal 3.0 05:13 Cannula 10/06/18 21 13:56 Intake and Output 10/06/18 10/06/18 10/07/18 1515:00 23:00 07:00 IntakeIntake Total 2600 ml 530 ml OutputOutput Total 50 ml BalanceBalance 2550 ml 530 ml Exam PE: Gen Appearance: No Apparent Distress HEENT: Normocephalic Cardiovascular: Regular rate Lungs: Clear bilaterally Abdomen: Soft Extremities: L leg bandaged with overlaying L leg brace. NE: The patient was alert and oriented.. Language was normal. Fund of knowledge was normal. Pupils were equal and reactive to light. There was no afferent pupillary defect. Visual marin were normal. Funduscopic examination showed sharp disc margins and spontaneous venous pulsations. Extra-ocular movements were full. Ptosis was absent. There was no nystagmus. Facial sensation was normal. Face was symmetric with normal strength. Hearing was intact. Palate movements were normal. Neck strength was normal. There was normal tongue bulk and speed of movement. Tone was normal. Muscle bulk was normal. I did not see fasciculations. Arms and R leg was strong. L hip flexor was strong; Dorsiflexion/plantar flexion in the L ankle was absent. Vibration sensation was absent in the L ankle/foot. Temperature and pinprick sensation was normal. Rapid alternating movements were normal. There was no dysmetria. There was no intention tremor. Gait was deferred due to bedrest. Arm and R leg reflexes were 2+; L leg reflex was unable to be assessed. Bennett's sign was absent. Plantar responses were flexor. Results Result Diagram: 10/07/18 0540 10/07/18 0540 Results 24hrs Laboratory Tests Test 10/06/18 16:20 10/06/18 21:37 10/06/18 23:11 10/07/18 02:50 Bedside Glucose 147 263 H 333 H 297 H Test 10/07/18 05:40 10/07/18 07:56 10/07/18 11:47 White Blood Count 18.3 #H Red Blood Count 4.87 Hemoglobin 12.2 Hematocrit 39.1 Mean Corpuscular 80.3 L Volume Mean Corpuscular 25.1 L Hemoglobin Mean Corpuscular 31.2 L Hemoglobin Concent Red Cell 15.0 H Distribution Width Platelet Count 438 H Mean Platelet Volume 10.1 Immature 0.800 H Granulocytes % Neutrophils % 88.4 H Lymphocytes % 8.5 L Monocytes % 2.1 Eosinophils % 0.0 Basophils % 0.2 Nucleated Red Blood 0.0 Cells % Immature 0.150 H Granulocytes # Neutrophils # 16.2 H Lymphocytes # 1.6 Monocytes # 0.4 Eosinophils # 0.0 Basophils # 0.0 Nucleated Red Blood 0.0 Cells # Sodium Level 141 Potassium Level 4.6 Chloride Level 104 Carbon Dioxide Level 26 Anion Gap 11 Blood Urea Nitrogen 17 Creatinine 0.45 Est Glomerular > 60 Filtrat Rate mL/min Glucose Level 302 H Calcium Level 9.9 Bedside Glucose 270 H 210 Medications Medication Current Medications Sodium Chloride 1,000 ml @ 80 mls/hr [id number] IV Last administered on 10/07/18at 01:28; Admin Dose 80 MLS/HR; Start 10/05/18 at 00:00 IV Flush (NS 3 ml) 3 ml PER PROTOCOL IV ; Start 10/04/18 at 20:30 Acetaminophen (Tylenol Tab) 650 mg Q6H PRN PO .PAIN 1-3 OR TEMP; Start 10/04/18 at 20:30 Acetaminophen/ Hydrocodone Bitart ([place] (5/325)) 1 tab Q6H PRN PO .MOD PAIN 4- 6 Last administered on 10/06/18at 05:15; Admin Dose 1 TAB; Start 10/04/18 at 20:30 Morphine Sulfate (morphine) 2 mg Q4H PRN IV .SEVERE PAIN 7-10; Start 10/04/18 at 20:30 Docusate Sodium (Colace) 100 mg Q12H PRN PO .CONSTIPATION; Start 10/04/18 at 20:30 Bisacodyl (Dulcolax) 5 mg DAILY PRN PO .CONSTIPATION; Start 10/04/18 at 20:30 Diagnostic Test (Pha) (Accu-Chek) 1 ea 02 XX ; Start 10/05/18 at 02:00 Miscellaneous Information 1 ea NOTE XX ; Start 10/04/18 at 22:00 Glucose (Glutose) 15 gm Q15M PRN PO DECREASED GLUCOSE; Start 10/04/18 at 22:00 Glucose (Glutose) 22.5 gm Q15M PRN PO DECREASED GLUCOSE; Start 10/04/18 at 22:00 Dextrose (D50w Syringe) 25 ml Q15M PRN IV DECREASED GLUCOSE; Start 10/04/18 at 22:00 Dextrose (D50w Syringe) 50 ml Q15M PRN IV DECREASED GLUCOSE; Start 10/04/18 at 22:00 Glucagon (Glucagen) 1 mg Q15M PRN IM DECREASED GLUCOSE; Start 10/04/18 at 22:00 Glucose (Glutose) 15 gm Q15M PRN BUCCAL DECREASED GLUCOSE; Start 10/04/18 at 22:00 Diagnostic Test (Pha) (Accu-Chek) 1 ea 02 XX ; Start 10/05/18 at 02:00 Levothyroxine Sodium (Synthroid) 150 mcg AC BREAKFAST PO Last administered on 10/07/18at 06:39; Admin Dose 150 MCG; Start 10/05/18 at 07:30 Fluticasone Propionate (Flonase 0.05% Nasal) 1 spray BID NASAL Last administered on 10/07/18 08:14; Admin Dose 1 SPRAY; Start 10/05/18 at 09:00 Ipratropium [place] (Atrovent 0.02% (Neb)) 0.5 mg Q4H RESP THERAPY HHN Last administered on 10/07/18 05:12; Admin Dose 0.5 MG; Start 10/05/18 at 07:00 Diagnostic Test (Pha) (Accu-Chek) 1 ea 02 XX ; Start 10/06/18 at 02:00 Insulin Aspart (Novolog Insulin Pen) NOVOLOG *MODERATE* ALGORITHM WITH MEALS BEDTIME SC Last administered on 10/07/18 12:29; Admin Dose 4 UNIT; Start 10/05/18 at 08:00 Senna/Docusate Sodium (Senokot-S) 1 tab BID PO Last administered on 10/07/18at 08:14; Admin Dose 1 TAB; Start 10/07/18 at 09:00 Docusate Sodium/ Ferrous Fumarate (Christina-Sequels) 1 tab DAILY PO Last administered on 10/07/18 08:14; Admin Dose 1 TAB; Start 10/07/18 at 09:00 Ondansetron HCl (Zofran Inj) 4 mg Q4H PRN IV NAUSEA AND/OR VOMITING; Start 10/06/18 at 21:30 Diphenhydramine HCl (Benadryl) 25 mg Q4H PRN PO ITCHING; Start 10/06/18 at 21:30 Rivaroxaban (Xarelto) 10 mg WITH DINNER PO ; Start 10/07/18 at 18:05 Oxycodone HCl (Roxicodone) 5 mg Q4H PRN PO MODERATE PAIN LEVEL 4-6; Start 10/06/18 at 21:30 Acetaminophen (Tylenol Tab) 325 mg Q4H PRN PO MILD PAIN(1-3)OR ELEVATED TEMP; Start 10/06/18 at 21:30 Hydromorphone HCl (Dilaudid) 1 mg Q3H PRN IV SEVERE PAIN LEVEL 7-10; Start 10/06/18 at 21:30 Gabapentin (Neurontin) 300 mg TID PO Last administered on 10/07/18at 12:29; Admin Dose 300 MG; Start 10/07/18 at 09:00 Cholecalciferol (Vitamin D) 5,000 unit DAILY PO Last administered on 10/07/18 08:13; Admin Dose 5,000 UNIT; Start 10/07/18 at 09:00 Ascorbic Acid (Vitamin C) 1,000 mg DAILY PO Last administered on 10/07/18 08:14; Admin Dose 1,000 MG; Start 10/07/18 at 09:00 Prenat Multivit/ [place]/Iron/Folic Ac () 1 tab DAILY PO Last administered on 10/07/18 08:14; Admin Dose 1 TAB; Start 10/07/18 at 09:00 Insulin Glargine (Lantus) 10 units DAILY@2000 SC Last administered on 10/07/18 01:26; Admin Dose 10 UNITS; Start 10/07/18 at 01:00 Cefazolin Sodium 50 ml @ 100 mls/hr Q8 IVPB Last administered on 10/07/18 13:46; Admin Dose 100 MLS/HR; Start 10/07/18 at 07:30; Stop 10/08/18 at 14:29 Amoxicillin/ Clavulanate Potassium (Augmentin) 875 mg BID PO Last administered on 10/07/18 13:46; Admin Dose 875 MG; Start 10/07/18 at 12:30 Past Medical History reviewed Medical History: diabetes Home Meds Active Scripts Hydrocodone/Acetaminophen ([place] 5-325 Tablet) 1 Each Tablet, 1 TAB PO Q6H PRN for PAIN, #7 TAB Prov:JEUDINE,GETHO PA-C 09/02/18 Naproxen* (Naprosyn*) 500 Mg Tablet, 500 MG PO BID PRN for PAIN AND/OR INFLAMMATION, #30 TAB Prov:EDWARDO DOMINGO PA-C 09/02/18 Reported Medications Aspirin* (Aspirin* EC) 81 Mg Tablet. 10/15/10 Lisinopril* (Lisinopril*) 10 Mg Tablet 10/15/10 Simvastatin* (Zocor*) 10 Mg Tablet 10/15/10 Glipizide* (Glipizide*) 5 Mg Tablet 10/15/10 Levothyroxine Sodium* (Levoxyl*) 150 Mcg Tablet 10/15/10 Pioglitazone Hcl* (Actos*) 15 Mg Tablet 10/15/10 Metformin* (Glucophage*) 500 Mg Tab 10/15/10 Medications Current Medications Sodium Chloride 1,000 ml @ 80 mls/hr [id number] IV Last administered on 10/07/18at 01:28; Admin Dose 80 MLS/HR; Start 10/05/18 at 00:00 IV Flush (NS 3 ml) 3 ml PER PROTOCOL IV ; Start 10/04/18 at 20:30 Acetaminophen (Tylenol Tab) 650 mg Q6H PRN PO .PAIN 1-3 OR TEMP; Start 10/04/18 at 20:30 Acetaminophen/ Hydrocodone Bitart ([place] (5/325)) 1 tab Q6H PRN PO .MOD PAIN 4- 6 Last administered on 10/06/18at 05:15; Admin Dose 1 TAB; Start 10/04/18 at 20:30 Morphine Sulfate (morphine) 2 mg Q4H PRN IV .SEVERE PAIN 7-10; Start 10/04/18 at 20:30 Docusate Sodium (Colace) 100 mg Q12H PRN PO .CONSTIPATION; Start 10/04/18 at 20:30 Bisacodyl (Dulcolax) 5 mg DAILY PRN PO .CONSTIPATION; Start 10/04/18 at 20:30 Diagnostic Test (Pha) (Accu-Chek) 1 ea 02 XX ; Start 10/05/18 at 02:00 Miscellaneous Information 1 ea NOTE XX ; Start 10/04/18 at 22:00 Glucose (Glutose) 15 gm Q15M PRN PO DECREASED GLUCOSE; Start 10/04/18 at 22:00 Glucose (Glutose) 22.5 gm Q15M PRN PO DECREASED GLUCOSE; Start 10/04/18 at 22:00 Dextrose (D50w Syringe) 25 ml Q15M PRN IV DECREASED GLUCOSE; Start 10/04/18 at 22:00 Dextrose (D50w Syringe) 50 ml Q15M PRN IV DECREASED GLUCOSE; Start 10/04/18 at 22:00 Glucagon (Glucagen) 1 mg Q15M PRN IM DECREASED GLUCOSE; Start 10/04/18 at 22:00 Glucose (Glutose) 15 gm Q15M PRN BUCCAL DECREASED GLUCOSE; Start 10/04/18 at 22:00 Diagnostic Test (Pha) (Accu-Chek) 1 ea 02 XX ; Start 10/05/18 at 02:00 Levothyroxine Sodium (Synthroid) 150 mcg AC BREAKFAST PO Last administered on 10/07/18at 06:39; Admin Dose 150 MCG; Start 10/05/18 at 07:30 Fluticasone Propionate (Flonase 0.05% Nasal) 1 spray BID NASAL Last administered on 10/07/18 08:14; Admin Dose 1 SPRAY; Start 10/05/18 at 09:00 Ipratropium [place] (Atrovent 0.02% (Neb)) 0.5 mg Q4H RESP THERAPY HHN Last administered on 10/07/18at 05:12; Admin Dose 0.5 MG; Start 10/05/18 at 07:00 Diagnostic Test (Pha) (Accu-Chek) 1 ea 02 XX ; Start 10/06/18 at 02:00 Insulin Aspart (Novolog Insulin Pen) NOVOLOG *MODERATE* ALGORITHM WITH MEALS BEDTIME SC Last administered on 10/07/18 12:29; Admin Dose 4 UNIT; Start 10/05/18 at 08:00 Senna/Docusate Sodium (Senokot-S) 1 tab BID PO Last administered on 10/07/18 08:14; Admin Dose 1 TAB; Start 10/07/18 at 09:00 Docusate Sodium/ Ferrous Fumarate (Christina-Sequels) 1 tab DAILY PO Last admi nistered on 10/07/18 08:14; Admin Dose 1 TAB; Start 10/07/18 at 09:00 Ondansetron HCl (Zofran Inj) 4 mg Q4H PRN IV NAUSEA AND/OR VOMITING; Start 10/06/18 at 21:30 Diphenhydramine HCl (Benadryl) 25 mg Q4H PRN PO ITCHING; Start 10/06/18 at 21:30 Rivaroxaban (Xarelto) 10 mg WITH DINNER PO ; Start 10/07/18 at 18:05 Oxycodone HCl (Roxicodone) 5 mg Q4H PRN PO MODERATE PAIN LEVEL 4-6; Start 10/06/18 at 21:30 Acetaminophen (Tylenol Tab) 325 mg Q4H PRN PO MILD PAIN(1-3)OR ELEVATED TEMP; Start 10/06/18 at 21:30 Hydromorphone HCl (Dilaudid) 1 mg Q3H PRN IV SEVERE PAIN LEVEL 7-10; Start 10/06/18 at 21:30 Gabapentin (Neurontin) 300 mg TID PO Last administered on 10/07/18 12:29; Admin Dose 300 MG; Start 10/07/18 at 09:00 Cholecalciferol (Vitamin D) 5,000 unit DAILY PO Last administered on 10/07/18 08:13; Admin Dose 5,000 UNIT; Start 10/07/18 at 09:00 Ascorbic Acid (Vitamin C) 1,000 mg DAILY PO Last administered on 10/07/18 08:14; Admin Dose 1,000 MG; Start 10/07/18 at 09:00 Prenat Multivit/ [place]/Iron/Folic Ac () 1 tab DAILY PO Last administered on 10/07/18 08:14; Admin Dose 1 TAB; Start 10/07/18 at 09:00 Insulin Glargine (Lantus) 10 units DAILY@2000 SC Last administered on 10/07/18 01:26; Admin Dose 10 UNITS; Start 10/07/18 at 01:00 Cefazolin Sodium 50 ml @ 100 mls/hr Q8 IVPB Last administered on 10/07/18at 13:46; Admin Dose 100 MLS/HR; Start 10/07/18 at 07:30; Stop 10/08/18 at 14:29 Amoxicillin/ Clavulanate Potassium (Augmentin) 875 mg BID PO Last administered on 10/07/18 13:46; Admin Dose 875 MG; Start 10/07/18 at 12:30 Allergies: Coded Allergies: No Known Drug Allergies (Verified Allergy, Mild, 09/02/18) Past Surgical History reviewed Social History reviewed Alcohol Use: none Smoking Status: Never smoker Drug Use: none AARON FREITAS NP Oct 07, 2018 15:45
[2018-10-07] MEDS ORDERED: RIVAROXABAN 10 MG TABLET PO SCH (18:05)
[2018-10-07] MEDS ORDERED: MINERAL OIL 30ML CUP PO PRN (19:00)
[2018-10-07 20:00] VITALS: BP 87/51; PULSE 79; RESP 18
[2018-10-07] MEDS ORDERED: INSULIN GLARGINE [LANTus] (100 UNITS/ML) SYG SC SCH (20:00)
[2018-10-07 20:43] VITALS: BP 95/57; PULSE 100; RESP 18
[2018-10-07] MEDS: HYDROCODONE/APAP (5/325) TAB PO PRN (20:53)
[2018-10-08] MEDS: IPRATROPIUM (NEB) 0.5 MG/2.5 ML AMP HHN SCH ×4 (01:11→13:00)
[2018-10-08 02:00] VITALS: BP 108/66; PULSE 91; RESP 18
[2018-10-08] MEDS: ACCU-CHEK XX SCH ×3 (02:00)
[2018-10-08] MEDS: SOD CHLORIDE 0.9% 1,000 ML IV SCH (02:35)
[2018-10-08] MEDS: CEFAZOLIN 1 GM/50 ML (PMX) 50 ML IVPB SCH ×2 (05:28→15:31)
[2018-10-08 07:20] VITALS: BP 102/50; PULSE 91; RESP 16
[2018-10-08] MEDS: LEVOTHYROXINE 150 MCG TAB PO SCH (08:05)
[2018-10-08] MEDS: INSULIN ASPART [NOVOLOG] 3 ML PEN SC SCH ×2 (08:11→12:08)
[2018-10-08] MEDS: ASCORBIC ACID 500 MG TAB PO SCH (08:32)
[2018-10-08] MEDS: PRENATAL VITAMIN PO SCH (08:32)
[2018-10-08] MEDS: AMOXICILLIN/CLAV 875 MG TAB PO SCH (08:32)
[2018-10-08] MEDS: CHOLECALCIFEROL 1,000 UNIT TAB PO SCH (08:32)
[2018-10-08] MEDS: GABAPENTIN 300 MG CAP PO SCH ×2 (08:32→15:30)
[2018-10-08] MEDS: SENNA/DOCUSATE NA (8.6MG/50MG) TAB PO SCH (08:32)
[2018-10-08] MEDS: FLUTICASONE 0.05% 16 GM NAS SPRAY NASAL SCH (08:32)
[2018-10-08] MEDS: FERROUS FUMARATE (SR) TAB PO SCH (08:39)
--- NOTE | 2018-10-08 08:48 | CONS ---
Consult Date/Type/Reason Admit Date/Time Oct 04, 2018 at 20:04 Initial Consult Date 10/05/18 Type of Consultation: CV Requesting Provider: DAVID HURTADO Date/Time of Note DATE: 10/08/18 TIME: 08:48 Subjective CARDIOLOGY FOLLOW UP NOTE S: D/W STAFF pt with no chest pain or pressure. no cough s/p surgery 10/06/ pt with less foot pain and wants to go home no palpitations O: General: Obese female in no acute distress HEENT: NC/AT. pupils are equal. round. NECK: NO JVD. no stridor. CV: RRR. systolic murmur; no gallop or rubs. PULM: no wheezing or rhonchi. GI: SOFT, NT, ND, no rebound or guarding Extremity: trace B/L LE edema. no clubbing. neuro: awake and alert, OX3. Psych: calm and pleasant rectal: deferred : normal EKG done October 04 was personally reviewed and normal sinus rhythm. Poor R wave progression otherwise no evidence of ischemia Chest x-ray shows: Mild bronchial wall thickening may be due to bronchitis or asthma. ECHO reviewed Normal left ventricular systolic function. Normal left ventricular cavity size. Mild concentric left ventricular hypertrophy. Ejection fraction is visually estimated at 55-60 %. Tissue Doppler/Mitral Doppler indices are consistent with impaired relaxation (Stage I diastolic dysfunction). Mild mitral leaflet calcification. Mild mitral annular calcification. Trace mitral regurgitation. No hemodynamically significant aortic stenosis by doppler. Aortic cusps appear mildly calcified. Normal appearance of the tricuspid valve. Estimated peak PA systolic pressure 27 mmHg. There is trace tricuspid regurgitation. Objective Vitals Vital Signs Date Temp Pulse Resp B/P (MAP) Pulse Ox O2 O2 Flow FiO2 Time Delivery Rate 10/08/18 91 18 95 21 08:17 10/08/18 98.0 102/50 Room Air 07:20 (67) 10/07/18 3.0 05:13 Intake and Output 10/07/18 10/07/18 10/08/18 1515:00 23:00 07:00 IntakeIntake Total 450 ml 875 ml 1015 ml OutputOutput Total 700 ml BalanceBalance 450 ml 875 ml 315 ml Results/Medications Result Diagram: 10/08/18 0558 10/08/18 0558 Results 24 hrs Laboratory Tests Test 10/07/18 11:47 10/07/18 17:20 10/07/18 20:55 10/08/18 01:50 Bedside Glucose 210 277 H 268 H 285 H Test 10/08/18 05:58 10/08/18 08:06 White Blood Count 17.4 H Red Blood Count 4.41 Hemoglobin 11.1 L Hematocrit 36.5 L Mean Corpuscular 82.8 Volume Mean Corpuscular 25.2 L Hemoglobin Mean Corpuscular 30.4 L Hemoglobin Concent Red Cell 15.3 H Distribution Width Platelet Count 409 Mean Platelet Volume 10.5 H Immature 0.500 H Granulocytes % Neutrophils % 60.8 Lymphocytes % 30.2 Monocytes % 7.6 Eosinophils % 0.4 Basophils % 0.5 Nucleated Red Blood 0.0 Cells % Immature 0.080 H Granulocytes # Neutrophils # 10.6 H Lymphocytes # 5.3 H Monocytes # 1.3 H Eosinophils # 0.1 Basophils # 0.1 Nucleated Red Blood 0.0 Cells # Sodium Level 141 Potassium Level 3.4 L Chloride Level 104 Carbon Dioxide Level 28 Anion Gap 9 Blood Urea Nitrogen 16 Creatinine 0.49 Est Glomerular > 60 Filtrat Rate mL/min Glucose Level 201 # Calcium Level 9.0 Bedside Glucose 180 Home Meds Active Scripts Hydrocodone/Acetaminophen ([place] 5-325 Tablet) 1 Each Tablet, 1 TAB PO Q6H PRN for PAIN, #7 TAB Prov:EDWARDO DOMINGO PA-C 09/02/18 Naproxen* (Naprosyn*) 500 Mg Tablet, 500 MG PO BID PRN for PAIN AND/OR INFLAMMATION, #30 TAB Prov:EDWARDO DOMINGO PA-C 09/02/18 Reported Medications Aspirin* (Aspirin* EC) 81 Mg Tablet. 10/15/10 Lisinopril* (Lisinopril*) 10 Mg Tablet 10/15/10 Simvastatin* (Zocor*) 10 Mg Tablet 10/15/10 Glipizide* (Glipizide*) 5 Mg Tablet 10/15/10 Levothyroxine Sodium* (Levoxyl*) 150 Mcg Tablet 10/15/10 Pioglitazone Hcl* (Actos*) 15 Mg Tablet 10/15/10 Metformin* (Glucophage*) 500 Mg Tab 10/15/10 Medications Current Medications Sodium Chloride 1,000 ml @ 80 mls/hr [id number] IV Last administered on 10/07/18at 15:58; Admin Dose 80 MLS/HR; Start 10/05/18 at 00:00 IV Flush (NS 3 ml) 3 ml PER PROTOCOL IV ; Start 10/04/18 at 20:30 Acetaminophen (Tylenol Tab) 650 mg Q6H PRN PO .PAIN 1-3 OR TEMP; Start 10/04/18 at 20:30 Acetaminophen/ Hydrocodone Bitart ([place] (5/325)) 1 tab Q6H PRN PO .MOD PAIN 4- 6 Last administered on 10/07/18at 20:53; Admin Dose 1 TAB; Start 10/04/18 at 20:30 Morphine Sulfate (morphine) 2 mg Q4H PRN IV .SEVERE PAIN 7-10; Start 10/04/18 at 20:30 Docusate Sodium (Colace) 100 mg Q12H PRN PO .CONSTIPATION; Start 10/04/18 at 20:30 Bisacodyl (Dulcolax) 5 mg DAILY PRN PO .CONSTIPATION; Start 10/04/18 at 20:30 Diagnostic Test (Pha) (Accu-Chek) 1 ea 02 XX ; Start 10/05/18 at 02:00 Miscellaneous Information 1 ea NOTE XX ; Start 10/04/18 at 22:00 Glucose (Glutose) 15 gm Q15M PRN PO DECREASED GLUCOSE; Start 10/04/18 at 22:00 Glucose (Glutose) 22.5 gm Q15M PRN PO DECREASED GLUCOSE; Start 10/04/18 at 22:00 Dextrose (D50w Syringe) 25 ml Q15M PRN IV DECREASED GLUCOSE; Start 10/04/18 at 22:00 Dextrose (D50w Syringe) 50 ml Q15M PRN IV DECREASED GLUCOSE; Start 10/04/18 at 22:00 Glucagon (Glucagen) 1 mg Q15M PRN IM DECREASED GLUCOSE; Start 10/04/18 at 22:00 Glucose (Glutose) 15 gm Q15M PRN BUCCAL DECREASED GLUCOSE; Start 10/04/18 at 22:00 Diagnostic Test (Pha) (Accu-Chek) 1 ea 02 XX ; Start 10/05/18 at 02:00 Levothyroxine Sodium (Synthroid) 150 mcg AC BREAKFAST PO Last administered on 10/08/18at 08:05; Admin Dose 150 MCG; Start 10/05/18 at 07:30 Fluticasone Propionate (Flonase 0.05% Nasal) 1 spray BID NASAL Last administered on 10/08/18 08:32; Admin Dose 1 SPRAY; Start 10/05/18 at 09:00 Ipratropium [place] (Atrovent 0.02% (Neb)) 0.5 mg Q4H RESP THERAPY HHN Last administered on 10/08/18 08:17; Admin Dose 0.5 MG; Start 10/05/18 at 07:00 Diagnostic Test (Pha) (Accu-Chek) 1 ea 02 XX ; Start 10/06/18 at 02:00 Insulin Aspart (Novolog Insulin Pen) NOVOLOG *MODERATE* ALGORITHM WITH MEALS BEDTIME SC Last administered on 10/08/18 08:11; Admin Dose 2 UNIT; Start 10/05/18 at 08:00 Senna/Docusate Sodium (Senokot-S) 1 tab BID PO Last administered on 10/08/18 08:32; Admin Dose 1 TAB; Start 10/07/18 at 09:00 Docusate Sodium/ Ferrous Fumarate (Christina-Sequels) 1 tab DAILY PO Last administered on 10/08/18 08:39; Admin Dose 1 TAB; Start 10/07/18 at 09:00 Ondansetron HCl (Zofran Inj) 4 mg Q4H PRN IV NAUSEA AND/OR VOMITING; Start 10/06/18 at 21:30 Diphenhydramine HCl (Benadryl) 25 mg Q4H PRN PO ITCHING; Start 10/06/18 at 21:30 Rivaroxaban (Xarelto) 10 mg WITH DINNER PO Last administered on 10/07/18 17:33; Admin Dose 10 MG; Start 10/07/18 at 18:05 Oxycodone HCl (Roxicodone) 5 mg Q4H PRN PO MODERATE PAIN LEVEL 4-6; Start 10/06/18 at 21:30 Acetaminophen (Tylenol Tab) 325 mg Q4H PRN PO MILD PAIN(1-3)OR ELEVATED TEMP; Start 10/06/18 at 21:30 Hydromorphone HCl (Dilaudid) 1 mg Q3H PRN IV SEVERE PAIN LEVEL 7-10 Last administered on 10/08/18 08:34; Admin Dose 1 MG; Start 10/06/18 at 21:30 Gabapentin (Neurontin) 300 mg TID PO Last administered on 10/08/18 08:32; Admin Dose 300 MG; Start 10/07/18 at 09:00 Cholecalciferol (Vitamin D) 5,000 unit DAILY PO Last administered on 10/08/18 08:32; Admin Dose 5,000 UNIT; Start 10/07/18 at 09:00 Ascorbic Acid (Vitamin C) 1,000 mg DAILY PO Last administered on 10/08/18 08:32; Admin Dose 1,000 MG; Start 10/07/18 at 09:00 Prenat Multivit/ [place]/Iron/Folic Ac () 1 tab DAILY PO Last administered on 10/08/18 08:32; Admin Dose 1 TAB; Start 10/07/18 at 09:00 Insulin Glargine (Lantus) 10 units DAILY@2000 SC Last administered on 10/07/18 20:59; Admin Dose 10 UNITS; Start 10/07/18 at 01:00 Cefazolin Sodium 50 ml @ 100 mls/hr Q8 IVPB Last administered on 10/08/18 05:28; Admin Dose 100 MLS/HR; Start 10/07/18 at 07:30; Stop 10/08/18 at 14:29 Amoxicillin/ Clavulanate Potassium (Augmentin) 875 mg BID PO Last administered on 10/08/18 08:32; Admin Dose 875 MG; Start 10/07/18 at 12:30 Mineral Oil (Mineral Oil) 30 ml DAILY PRN PO CONSTIPATION; Start 10/07/18 at 19:00 Assessment/Plan Hospital Course (Demo Recall) 1. left depressed lateral tibial plateau fracture: s/p surgery 2. Acute bronchitis : improved on levaquin 3. DM, HbA1c 12.5, on insulin 4. HTN, now mostly hypotensive/ stable. Hold lisinopril for low BP 5. Hypothyroidism, on synthroid 6. DVT prophylaxis, lovenox Recommendation: Continue with the current cardiac care Postop care as per podiatry DVT prophylaxis dc planning as per IM ORTHO Thank you for his referral. We will continue to follow along with you RICHARD SRINIVASAN MD [facility] RICHARD SRINIVASAN MD Oct 08, 2018 08:48
--- NOTE | 2018-10-08 09:54 | PN ---
Date/Time of Note Date/Time of Note DATE: 10/08/18 TIME: 09:51 Assessment/Plan Lines/Catheters IV Catheter Type (from Nrsg): Peripheral IV Sampson in Place (from Nrsg): No Assessment/Plan Assessment/Plan POD#2 S/p Left knee tibial plateau ORIF - NWB to the LLE - PT to GT - PO pain meds - will need to be DC'd on Pain meds and 6 weeks of Xarelto 10 mg Po qday for DVT prophx - patient to follow up with me in 1 week at [facility] [place] --- Adrián Girard MD Subjective 24 Hr Interval Summary Patient reports she is feeling excellent this morning and very happy. She notes the block wore off last night and her pain has increased slightly Exam/Review of Systems Vital Signs Vitals Vital Signs Date Temp Pulse Resp B/P (MAP) Pulse Ox O2 O2 Flow FiO2 Time Delivery Rate 10/08/18 91 18 95 21 08:17 10/08/18 98.0 102/50 Room Air 07:20 (67) 10/07/18 3.0 05:13 Intake and Output 10/07/18 10/07/18 10/08/18 1515:00 23:00 07:00 IntakeIntake Total 450 ml 875 ml 1015 ml OutputOutput Total 700 ml BalanceBalance 450 ml 875 ml 315 ml Exam Constitutional: alert, oriented, well developed Extremities: other (Left leg wound c/d/i./ Fully intact TA/GSC/EHL with 5/5 EHL/DF/PF/Eversion and inversion. SILT to the m/l/d/p/fdws. CR Brisk) Results Result Diagram: 10/08/18 0558 10/08/18 0558 VANESSA GIRARD MD Oct 08, 2018 09:54
[2018-10-08] MEDS ORDERED: POTASSIUM CHLORIDE (SR) 20 MEQ TAB PO STA (12:44)
[2018-10-08] MEDS ORDERED: LEVO500T48 PO (13:03)
[2018-10-08] MEDS ORDERED: RIVA10TA PO (13:19)
[2018-10-08] MEDS ORDERED: AMOX1TAB10 PO (13:19)
--- NOTE | 2018-10-08 13:25 | DS ---
Date/Time of Note Date/Time of Note DATE: 10/08/18 TIME: 13:05 Discharge Summary Admission/Discharge Info Admit Date/Time Oct 04, 2018 at 20:04 Discharge Date/Time Discharge Diagnosis 1. Left knee lateral tibial plateau fracture open reduction internal fixation with allograft and left knee open lateral meniscus repair on 10/06/2018, follow up with surgery and PT 2. Acute bronchitis/pneumonia, improving, on augmentin 3. DM, HbA1c 12.5, resume home meds, follow up with PCP to adjust treatment 6. HTN, controlled without antihypertensive 7. Hypothyroidism, on synthroid Patient Condition: Stable Hospital Course 63-year-old woman presents with left knee pain status post depressed lateral left tibial plateau fracture that occurred 1 month ago. She was referred here by her orthopedic surgeon for preop workup and admission pending ORIF tomorrow morning. She denies any recent redness or swelling to the knee, no fevers or chills. She does however report that she has been dealing with a cough along with nasal congestion and left ear congestion for the past few days. X-ray indicates left knee lateral tibial plateau fracture, that she got open reduction internal fixation with allograft and left knee open lateral meniscus repair on 10/06/2018. She had transient left foot drooping from popliteal block after surgery that is totally recovered. Pateint is dicharged with home PT and instructed to [facility] on lfet lower extremity and follow up with Dr. Pan in office. SHe will be on xarelto for 6 weeks for DVT prophylaxis. Patient coughs with leukocytosis. CXR no pulmonary infiltrates. SHe is on antibiotics for acute bronchitis, symptoms is improved. i will continue her on augmentin for 7 days. Home Meds Active Scripts Levofloxacin* (Levaquin*) 500 Mg Tablet, 500 MG PO DAILY for 7 Days, TAB Prov:MARIA T MONCADA MD 10/08/18 Hydrocodone/Acetaminophen ([place] 5-325 Tablet) 1 Each Tablet, 1 TAB PO Q6H PRN for PAIN, #7 TAB Prov:EDWARDO DOMINGO PA-C 09/02/18 Naproxen* (Naprosyn*) 500 Mg Tablet, 500 MG PO BID PRN for PAIN AND/OR INFLAMMATION, #30 TAB Prov:EDWARDO DOMINGO PA-C 09/02/18 Reported Medications Aspirin* (Aspirin* EC) 81 Mg Tablet. 10/15/10 Lisinopril* (Lisinopril*) 10 Mg Tablet 10/15/10 Simvastatin* (Zocor*) 10 Mg Tablet 10/15/10 Glipizide* (Glipizide*) 5 Mg Tablet 10/15/10 Levothyroxine Sodium* (Levoxyl*) 150 Mcg Tablet 10/15/10 Pioglitazone Hcl* (Actos*) 15 Mg Tablet 10/15/10 Metformin* (Glucophage*) 500 Mg Tab 10/15/10 Follow-up Plan home health for PT follow up with PCP and ortho Primary Care Provider Murtaza Mckenzie MD Pending Labs Laboratory Tests Test 10/07/18 17:20 10/07/18 20:55 10/08/18 01:50 10/08/18 05:58 Bedside 277 268 285 Glucose mg/dL (70-220) mg/dL (70-220) mg/dL (70-220) White Blood 17.4 Count 10^3/ul (4.8-1 0.8) Red Blood 4.41 Count 10^6/ul (4.20- 5.40) Hemoglobin 11.1 g/dl (12.0-16. 0) Hematocrit 36.5 % (37.0-47.0) Mean 82.8 Corpuscular fl (82.0-101.0 Volume ) Mean 25.2 Corpuscular pg (29.0-33.0) Hemoglobin Mean 30.4 Corpuscular g/dl (32.0-37. Hemoglobin Conc 0) ent Red Cell 15.3 Distribution % (11.5-14.5) Width Platelet Count 409 10^3/UL (140-4 15) Mean Platelet 10.5 Volume fl (7.4-10.4) Immature 0.500 Granulocytes % % (0.001-0.429 ) Neutrophils % 60.8 % (39.0-77.0) Lymphocytes % 30.2 % (15.0-51.0) Monocytes % 7.6 % (0.0-11.0) Eosinophils % 0.4 % (0.0-7.0) Basophils % 0.5 % (0.0-2.0) Nucleated Red 0.0 Blood Cells % /100WBC (0.0-0 .0) Immature 0.080 Granulocytes # 10^3/ul (0.0-0 .031) Neutrophils # 10.6 10^3/ul (1.6-7 .5) Lymphocytes # 5.3 10^3/ul (0.8-2 .9) Monocytes # 1.3 10^3/ul (0.3-0 .9) Eosinophils # 0.1 10^3/ul (0.0-0 .5) Basophils # 0.1 10^3/ul (0.0-0 .1) Nucleated Red 0.0 Blood Cells # 10^3/ul (0.0-0 .0) Sodium Level 141 mmol/L (135-14 4) Potassium 3.4 Level mmol/L (3.5-5. 1) Chloride Level 104 mmol/L (97-110 ) Carbon Dioxide 28 Level mmol/L (21-31) Anion Gap 9 (5-13) Blood Urea 16 Nitrogen mg/dl (7-20) Creatinine 0.49 mg/dl (0.44-1. 00) Est Glomerular > 60 Filtrat mL/min (>60) Rate mL/min Glucose Level 201 mg/dl (70-220) Calcium Level 9.0 mg/dl (8.4-10. 2) Test 10/08/18 08:06 10/08/18 12:07 Bedside 180 220 Glucose mg/dL (70-220) mg/dL (70-220) MARIA T MONCADA MD Oct 08, 2018 13:15
[2018-10-08 14:03] VITALS: BP 99/56; PULSE 88; RESP 16
--- NOTE | 2018-10-08 15:02 | CONS ---
Assessment/Plan Assessment/Plan Hospital Course 63 yo F with HTN, DM, obesity and other comorbidities who was admitted for an urgent L tibia surgery. Now s/p ORIF on 10/06/18, and noted post-operatively to have L leg/foot weakness and sensory loss for which neurology is consulted. Her neurologic examination is now notable for significant improvement of her L ankle weakness with preserved sensation. Of note, she had a L popliteal regional block, which is a likely contributor. CTH is reassuring without acute intracranial pathology. LDL 67 P: Ok to continue Xarelto Cont other medical management per primary PT/OT as tolerated Neurologically cleared for discharge Consultation Date/Type/Reason Admit Date/Time Oct 04, 2018 at 20:04 Type of Consult Neurology Requesting Provider: DAVID HURTADO Date/Time of Note DATE: 10/08/18 TIME: 14:56 24 HR Interval Summary Free Text/Dictation S/p HCT. The pt states that she is now has full movement of her foot with intact sensation. Awaiting discharge today. Exam Vital Signs Vitals Vital Signs Date Temp Pulse Resp B/P (MAP) Pulse Ox O2 O2 Flow FiO2 Time Delivery Rate 10/08/18 98.2 88 16 99/56 (70) 95 Room Air 14:03 10/08/18 21 08:17 10/07/18 3.0 05:13 Intake and Output 10/07/18 10/07/18 10/08/18 1515:00 23:00 07:00 IntakeIntake Total 450 ml 875 ml 1015 ml OutputOutput Total 700 ml BalanceBalance 450 ml 875 ml 315 ml Exam PE: Gen Appearance: No Apparent Distress HEENT: Normocephalic Cardiovascular: Regular rate Lungs: Clear bilaterally Abdomen: Soft Extremities: L leg bandaged with overlaying L leg brace. NE: The patient was alert and oriented.. Language was normal. Fund of knowledge was normal. Pupils were equal and reactive to light. There was no afferent pupillary defect. Visual marin were normal. Funduscopic examination showed sharp disc margins and spontaneous venous pulsations. Extra-ocular movements were full. Ptosis was absent. There was no nystagmus. Facial sensation was normal. Face was symmetric with normal strength. Hearing was intact. Palate movements were normal. Neck strength was normal. There was normal tongue bulk and speed of movement. Tone was normal. Muscle bulk was normal. I did not see fasciculations. Arms and R leg was strong. L leg was limited d/t leg brace. The pt had minimal weakness of her L foot with plantar flexion/dorsiflexion. Vibration sensation was normal. Temperature and pinprick sensation was normal. Rapid alternating movements were normal. There was no dysmetria. There was no intention tremor. Gait was deferred due to bedrest. Arm and R leg reflexes were 2+; L leg reflex was unable to be assessed. Ho ffman's sign was absent. Plantar responses were flexor. AARON FREITAS NP Oct 08, 2018 15:02 RENETTA BROWN Oct 09, 2018 06:45
== END 2018-10-08 16:34 | disposition home health service (06) | DRG 492 ==
LOC: E/R 17:03 → PP2 20:04
PROVIDERS: ADMIT Family Medicine; ATTEND Internal Medicine
PROC: 0QUH0KZ Supplement Left Tibia with Nonautologous Tissue Substitute, Open Approach (ICD-10-PCS; 2018-10-06)
PROC: 0QSH04Z Reposition Left Tibia with Internal Fixation Device, Open Approach (ICD-10-PCS; principal; 2018-10-06 17:30)
DX: S82.142A Displaced bicondylar fracture of left tibia, initial encounter for closed fracture (principal); J18.9 Pneumonia, unspecified organism; Z68.41 Body mass index [BMI] 40.0-44.9, adult; J20.9 Acute bronchitis, unspecified; E66.9 Obesity, unspecified; W19.XXXA Unspecified fall, initial encounter; I10 Essential (primary) hypertension; E03.9 Hypothyroidism, unspecified; E11.65 Type 2 diabetes mellitus with hyperglycemia; E78.5 Hyperlipidemia, unspecified; M21.372 Foot drop, left foot; T41.3X5A Adverse effect of local anesthetics, initial encounter
CPT/HCPCS: 36415; 70450; 71045; 73562; 73700; 80048; 80053; 80061; 81001; 82306; 82728; 82962; 83036; 83540; 83690; 83735; 84443; 85025; 85610; 85730; 93005; 93306; 94640; 94664; 97110; 97116; 97161; C1762; J0690; J1100; J1170; J1650; J1815; J2250; J2270; J2370; J2405; J2765; J2795; J3010; J7030; J7040